=== PATIENT | female | born 1935 | race Caucasian/White ===

== ENCOUNTER 2017-09-29 09:18 | Day surgery (SDC) | payer MEDICARE, MEDICAID ==
[2017-09-29 10:18] VITALS: RESP 18; O2SAT 100
[2017-09-29] MEDS: Bupivacaine 0.25% Inj(30mL) IJ ONE ×2 (10:20→10:42)
[2017-09-29] MEDS: Lidocaine/Epinephrine 1% 1:100000 10 ML IJ ONE ×2 (10:20→10:42)
[2017-09-29] MEDS ORDERED: ceFAZolin IV 1 gm in Dextrose 1 GM/50 ML BAG IVPB ONE (10:40)
--- NOTE | 2017-09-29 11:06 | PCM.SURG1 ---
Surgeon's Initial Post Op Note - Surgeon's Notes Surgeon: Dr velasquez Retort Operator: Dr Mattson PGY3 Type of Anesthesia: Local Pre-Operative Diagnosis: posterior neck lesion Operative Findings: see report Post-Operative Diagnosis: as above Operation Performed: excision of posterior neck lesion Specimen/Specimens Removed: neck lesion Estimated Blood Loss: EBL {In ML}: 1 Blood Products Given: N/A Drains Used: No Drains Post-Op Condition: Good Date of Surgery/Procedure: 09/29/17 Time of Surgery/Procedure: 11:06
[2017-09-29 11:25] VITALS: BP 130/60; PULSE 61; TEMP 98
--- NOTE | 2017-09-30 06:59 | OP ---
PROCEDURE DATE: 09/29/2017 PREOPERATIVE DIAGNOSIS: Left neck skin lesion, 3 x 1 cm size. POSTOPERATIVE DIAGNOSIS: Left neck skin lesion, 3 x 1 cm size. PROCEDURE DONE: Excision of the left neck skin lesion, 3 x 1 cm size. SURGEON: Ken Keita MD. REFRACTORY REPAIRER: Rhett Mattson, PGY-3 resident. TYPE OF ANESTHESIA: General endotracheal tube anesthesia. ESTIMATED BLOOD LOSS: Around 10 mL. DRAINS: None. PATHOLOGY: Skin lesion was sent for the pathology. COMPLICATIONS: None. INTRAOPERATIVE FINDINGS: The patient had approximately 3 x 1 cm skin lesion of the left neck. DESCRIPTION OF PROCEDURE: On intraoperative steps, this is an 82-year-old female who was diagnosed with the skin lesion of the left neck, and the patient was consented for the excision, brought to the OR, placed in right lateral position. The left neck was prepped and draped in the usual sterile fashion. An elliptical 3 x 1 cm incision was made. After incising skin and subcutaneous tissue, the skin lesion was completely excised and sent off the table for pathology. The wound was closed in two layers, subcutaneously with 2-0 Vicryl, skin with a 4-0 Monocryl, and dry sterile dressing was applied. The patient tolerated the procedure well. Count of the instruments and gauze was correct. There was no apparent complication. The patient was sent to the Postanesthesia Care Unit in stable condition. Ken Keita MD ART
== END 2017-09-29 11:45 | disposition home or self-care (01) ==
LOC: C.SDS 09:18
PROVIDERS: ATTEND Surgery Surgical Critical Care
DX: L82.1 Other seborrheic keratosis (principal); E03.9 Hypothyroidism, unspecified; Z95.1 Presence of aortocoronary bypass graft; I25.10 Atherosclerotic heart disease of native coronary artery without angina pectoris; I10 Essential (primary) hypertension; Z79.82 Long term (current) use of aspirin
CPT/HCPCS: 11424; 12042; 88305; J0690

== ENCOUNTER 2017-12-07 12:29 | Inpatient (IN) | payer MEDICARE, MEDICAID ==
[2017-12-07 12:37] VITALS: BMI 29.2
--- NOTE | 2017-12-07 13:12 | RAD ---
Chest x-ray two views History: Shortness of breath. Comparison: None available. Findings: Left basilar consolidation with adjacent left pleural effusion. Mild venous congestion. Small nodular density at the medial right lung base. Blunted right costophrenic angle may represent pleural thickening and or trace effusion. Biapical pleural thickening. Status post median sternotomy. Tortuous aorta. Mild cardiomegaly. Degenerative changes in the spine. Impression: Left basilar consolidation with adjacent left pleural effusion. Mild venous congestion. Small nodular density at the medial right lung base. Blunted right costophrenic angle may represent pleural thickening and or trace effusion. Biapical pleural thickening. Status post median sternotomy. Tortuous aorta. Mild cardiomegaly. Degenerative changes in the spine.
[2017-12-07 13:23] LABS: BASO % 0.3 % (0.0-2.0); EOS % 0.1 % (0.0-4.0); HEMOGLOBIN 13.1 g/dL (11.0-16.0); LYMPH # 0.7 K/uL (1.0-4.3); LYMPH % 5.2 % (20.0-40.0); MEAN CELL VOLUME 90.9 fL (81.0-99.0); MEAN CORPUSCULAR HEMOGLOBIN 30.9 pg (27.0-31.0); MEAN PLATELET VOLUME 7.4 fL (7.2-11.7); MONO # 0.8 K/uL (0.0-0.8); MONO % 5.9 % (0.0-10.0); NEUT % 88.5 % (50.0-75.0); PLATELET COUNT 231 K/uL (130-400); RBC 4.23 Mil/uL (3.80-5.20); RED CELL DISTRIBUTION WIDTH 13.8 % (11.5-14.5); WHITE BLOOD COUNT 13.5 K/uL (4.8-10.8)
--- NOTE | 2017-12-07 13:26 | C.PDOC ---
History Of Present Illness 82 year old female with PMHx of HTN, diabetes, hypothyroidism, and CAD s/p CABG presents to the ED c/o left-sided upper back pain over the past 2-3 days. Associated with generalized weakness and decreased appetite. Pain worsens with deep inspiration and movement. Pt denies SOB, though daughter notes she has been SOB with speech. Otherwise she denies any fever, SOB, cough, dizziness, extremity weakness, numbness, leg pain or swelling. Of note, patient recently returned from traveling to [place] 4 days ago. Time Seen by Provider: 12/07/17 12:48 Chief Complaint (Nursing): Chest Pain History Per: Patient History/Exam Limitations: no limitations Onset/Duration Of Symptoms: Days Current Symptoms Are (Timing): Still Present Exacerbating Factors: Movement, Deep Breathing Recent travel outside of the [place]: Yes ([place]) Additional History Per: Family (daughter at bedside) Past Medical History Vital Signs: Last Vital Signs Temp 99.6 F 12/07/17 12:51 Pulse 72 12/07/17 15:46 Resp 20 12/07/17 15:46 BP 114/54 L 12/07/17 15:46 Pulse Ox 95 12/07/17 17:14 - Medical History PMH: Diabetes, HTN, Hypercholesterolemia, Hypothyroidism, Osteoporosis Denies: Chronic Kidney Disease Surgical History: CABG (CABG 3 VESSEL BYPASS 2002) Family History: States: Unknown Family Hx - Social History Hx Alcohol Use: No Hx Substance Use: No - Immunization History Hx Tetanus Toxoid Vaccination: No Hx Influenza Vaccination: Yes Hx Pneumococcal Vaccination: No Review Of Systems Except As Marked, All Systems Reviewed And Found Negative. Constitutional: Positive for: Weakness (generalized) Cardiovascular: Positive for: Chest Pain Respiratory: Negative for: Cough, Shortness of Breath Gastrointestinal: Negative for: Nausea, Vomiting Musculoskeletal: Positive for: Back Pain. Negative for: Leg Pain (or swelling) Neurological: Negative for: Weakness, Numbness, Dizziness Physical Exam - Physical Exam Appears: Non-toxic, No Acute Distress Skin: Normal Color, Warm, Dry Head: Atraumatic, Normacephalic Eye(s): bilateral: Normal Inspection, EOMI Nose: Normal Oral Mucosa: Moist Neck: Normal ROM, Supple Chest: Symmetrical, No Tenderness, Other (Mediastinal scar noted) Cardiovascular: Rhythm Regular Respiratory: Rales (left base), No Rhonchi, No Wheezing Gastrointestinal/Abdominal: Soft, No Tenderness, No Distention Back: No Vertebral Tenderness, Paraspinal Tenderness (to left parathoracic region) Extremity: Normal ROM Extremity: Bilateral: Atraumatic, Normal Color And Temperature, Normal ROM Neurological/Psych: Oriented x3, Normal Speech, Other (No focal deficits) ED Course And Treatment - Laboratory Results Result Diagrams: 12/07/17 13:16 12/07/17 13:16 O2 Sat by Pulse Oximetry: 95 (RA) Pulse Ox Interpretation: Normal - Other Rad CXR X-Ray: Read By Radiologist Interpretation: Accession No. : [id number]. Patient Name / ID : TONEY ALEJANDRO / [id number]. Exam Date : 12/07/2017 12:52:50 ( Approved ). Study Comment : Sex / Age : F / 82Y. Creator : Willy Hanna MD. Dictator : Willy Hanna MD. Valve Tester : Liaison Officer : Willy Hanna MD. Approver2 : Report Date : 12/07/2017 13:10:53. My Comment : . Chest x-ray two views. History: Shortness of breath. Comparison: None available. Findings: Left basilar consolidation with adjacent left pleural effusion. Mild venous congestion. Small nodular density at the medial right lung base. Blunted right costophrenic angle may represent pleural thickening and or trace effusion. Biapical pleural thickening. Status post median sternotomy. Tortuous aorta. Mild cardiomegaly. Degenerative changes in the spine. Impression: Left basilar consolidation with adjacent left pleural effusion. Mild venous congestion. Small nodular density at the medial right lung base. Blunted right costophrenic angle may represent pleural thickening and or trace effusion. Biapical pleural thickening. Status post median sternotomy. Tortuous aorta. Mild cardiomegaly. Degenerative changes in the spine. - CT Scan/US CTA Chest Other Rad Studies (CT/US): Read By Radiologist, Radiology Report Reviewed CT/US Interpretation: Accession No. : [id number]. Patient Name / ID : TONEY ALEJANDRO / [id number]. Exam Date : 12/07/2017 14:22:47 ( Approved ). Study Comment : Sex / Age : F / 82Y. Creator : Willy Hanna MD. Dictator : Willy Hanna MD. Valve Tester : Liaison Officer : Willy Hanna MD. Approver2 : Report Date : 12/07/2017 15:03:59. My Comment : . PROCEDURE: CT Chest with contrast (Pulmonary Angiogram). HISTORY: Chest pain. COMPARISON: None available. TECHNIQUE: Axial computed tomography images were obtained of the chest in the pulmonary arterial phase of enhancement. Coronal and sagittal reformatted images were created and reviewed. Radiation dose: Total exam DLP = 176 mGy-cm. This CT exam was performed using one or more of the following dose reduction techniques: Automated exposure control, adjustment of the mA and/or kV according to patient size, and/ or use of iterative reconstruction technique. FINDINGS: PULMONARY ARTERIES: No evidence of gross central pulmonary embolism. More limited evaluation of the segmental and subsegmental branches given patient motion artifact. AORTA: Calcification and plaque within visualized aorta. LUNGS: Dense masslike consolidation measuring 5.1 x 5.1 centimeters seen within the lateral aspect of the left lower lobe which may represent prominent infiltrate. Post treatment interval followup would be helpful to ensure resolution and exclude underlying lesion. Punctate 1 millimeter granuloma/nodule left lung apex. Patchy atelectasis scattered throughout the right lung. PLEURAL SPACES: Trace bilateral pleural effusions. HEART: Cardiomegaly. LYMPH NODES: 1.4 centimeter prevascular lymph node. No significant hilar adenopathy. BONES, CHEST WALL: Degenerative changes in the spine. OTHER FINDINGS: Prominent liver. Nodular thickening of the adrenals. Small hiatal hernia. Status post median sternotomy. IMPRESSION: Dense masslike consolidation in the left lower lobe of the lung concerning for prominent infiltrate and or atelectasis. Post treatment interval followup would be helpful to ensure resolution. No evidence of gross central pulmonary embolism. More limited evaluation of the segmental and subsegmental branches given patient motion artifact. Additional findings as above. Progress Note: Initiated work up including EKG, CXR, and labs. Labs reviewed, D -dimer 546. Trop negative. BNP is wnl. CXR shows left base consolidation. Ordered CTA Chest. Patient started on IV Zithro and Rocephin. Case discussed with Dr. De La Torre, who evaluated pt at bedside and agrees with treatment and admission. Disposition - Disposition Disposition: HOSPITALIZED Disposition Time: 14:43 Condition: STABLE - POA Core Measure Indicators: Chest Pain - Clinical Impression Clinical Impression: CAP (community acquired pneumonia) - PA / JUNK DEALER / Resident Statement MD/DO has reviewed & agrees with the documentation as recorded. - Scribe Statement The provider has reviewed the documentation as recorded by the Scribe (Margaret Benjamin) All medical record entries made by the Scribe were at my direction and personally dictated by me. I have reviewed the chart and agree that the record accurately reflects my personal performance of the history, physical exam, medical decision making, and the department course for this patient. I have also personally directed, reviewed, and agree with the discharge instructions and disposition.
[2017-12-07] MEDS ORDERED: Azithromycin 500mg/250ML NS 500 MG/250 ML BAG IV SCH (13:30)
[2017-12-07 13:34] LABS: ALB/GLOB RATIO 0.9 (1.0-2.1); ALBUMIN 3.8 g/dL (3.5-5.0); ALT/SGPT 19 U/L (9-52); AST/SGOT 26 U/L (14-36); BLOOD UREA NITROGEN 16 mg/dL (7-17); CALCIUM 9.5 mg/dl (8.6-10.4); GFR AFRICAN-AMERICAN > 60; GFR NON-AFRICAN AMERICAN 60; LIPASE 162 U/L (23-300)
[2017-12-07 13:40] LABS: SQUAMOUS EPITHIAL < 1 /hpf (0-5); URINE BILIRUBIN NEGATIVE (NEGATIVE); URINE BLOOD NEGATIVE (NEGATIVE); URINE CLARITY Clear (Clear); URINE COLOR Yellow (YELLOW); URINE GLUCOSE (UA) 1+ mg/dL (Normal); URINE LEUKOCYTE ESTERASE NEG Leu/uL (Negative); URINE PROTEIN 2+ mg/dL (NEGATIVE); URINE UROBILINOGEN NORMAL mg/dL (0.2-1.0)
[2017-12-07 13:42] LABS: INR 1.2; PROTHROMBIN TIME 12.8 SECONDS (9.7-12.2)
[2017-12-07 13:46] LABS: B-TYPE NATRIURETIC PEPTIDE 455 pg/mL (0-900)
[2017-12-07 13:48] LABS: CK-MB < 0.22 ng/mL (0.0-3.38)
[2017-12-07] MEDS ORDERED: Iodixanol 320 MG/ML 100 ML BOTTLE IV ONE (13:57)
[2017-12-07] MEDS ORDERED: Azithromycin 500mg/250ML NS 500 MG/250 ML BAG IV STA (14:02)
[2017-12-07 14:04] LABS: LYMPHOCYTE 1 % (20-40); MONOCYTE 3 % (0-10); NEUTROPHIL 96 % (50-75); PLATELET ESTIMATE NORMAL (NORMAL); TOTAL CELLS COUNTED 100
[2017-12-07] MEDS ORDERED: cefTRIAXone IV 1 gm in Dextros 50 ML IV ONE (14:42)
--- NOTE | 2017-12-07 15:05 | CT ---
PROCEDURE: CT Chest with contrast (Pulmonary Angiogram) HISTORY: Chest pain COMPARISON: None available. TECHNIQUE: Axial computed tomography images were obtained of the chest in the pulmonary arterial phase of enhancement. Coronal and sagittal reformatted images were created and reviewed. Radiation dose: Total exam DLP = 176 mGy-cm. This CT exam was performed using one or more of the following dose reduction techniques: Automated exposure control, adjustment of the mA and/or kV according to patient size, and/or use of iterative reconstruction technique. FINDINGS: PULMONARY ARTERIES: No evidence of gross central pulmonary embolism. More limited evaluation of the segmental and subsegmental branches given patient motion artifact. AORTA: Calcification and plaque within visualized aorta. LUNGS: Dense masslike consolidation measuring 5.1 x 5.1 centimeters seen within the lateral aspect of the left lower lobe which may represent prominent infiltrate. Post treatment interval followup would be helpful to ensure resolution and exclude underlying lesion. Punctate 1 millimeter granuloma/nodule left lung apex. Patchy atelectasis scattered throughout the right lung. PLEURAL SPACES: Trace bilateral pleural effusions. HEART: Cardiomegaly. LYMPH NODES: 1.4 centimeter prevascular lymph node. No significant hilar adenopathy. BONES, CHEST WALL: Degenerative changes in the spine. OTHER FINDINGS: Prominent liver. Nodular thickening of the adrenals. Small hiatal hernia. Status post median sternotomy. IMPRESSION: Dense masslike consolidation in the left lower lobe of the lung concerning for prominent infiltrate and or atelectasis. Post treatment interval followup would be helpful to ensure resolution. No evidence of gross central pulmonary embolism. More limited evaluation of the segmental and subsegmental branches given patient motion artifact. Additional findings as above.
[2017-12-07] MEDS: Sodium Chloride 0.9% 1,000 ML IV SCH (15:15)
--- NOTE | 2017-12-07 16:41 | CP.PCM.HP ---
History of Present Illness - History of Present Illness History of Present Illness: Chief complaints: Weakness, left-sided pleuritic chest pain HPI: 82-year-old female with history of hypertension, CAD, status post a CABG, hypothyroidism came to the emergency room with the pleuritic chest pain on the left side. Patient recently went to [facility], returned from [facility] 4 days ago. While she was there she did not have any illness. But 2 days later she started noticing increasing weakness, not able to eat well , progressively worsening left-sided pain in the chest. The pain was sometimes severe, unable to take a deep breath, sharp pain noted, associated with a minimal cough. Not able to produce any mucus production. Splinting pain noted in the left lower chest area. Patient did not have any fever, no chills. But increasingly weakness, poor intake, loss of appetite noted. No recent sick exposure. Past medical history: Hypothyroidism, hypertension, CAD, status post CABG Surgical history: Surgical post-CABG in 2002 Allergy no known drug allergy Personal history nonsmoker nonalcoholic Family history significant for CAD Review of system: Complaining of minimal headache, also complaining of dryness of the mouth, cough noted minimally, left-sided pleuritic chest pain, poor intake, loss of appetite noted. Urine output is and bowel movements are okay On examination: Chest bilateral good air entry, but left-sided lower lung rales noted. Regular heart sound Abdomen soft Nontender. No pedal edema GM MOBILE alert awake oriented. Patient is feeling sick at this time. Labs reviewed Elevated WBC noted, neutrophil positive. X-ray of the chest showing evidence of left lower lung infiltrate. CT of the chest with contrast done to rule out PE, there is no evidence of PE noted. Patient has left lower lung consolidation and pleural effusion Small amount of pleural effusion noted Assessment and recommendation: 82-year-old female with a history of hypertension, hypercholesterolemia, CAD, status post a CABG, hypothyroidism now admitted with a possible acute community- acquired pneumonia. Associated with a minimal pleural effusion, parapneumonic effusion. Patient also has a possible dehydration. Weakness. Will start the patient on IV antibiotic including Rocephin and Zithromax. The also start a dose of vancomycin. Pain management. IV fluid. DVT and GI prophylaxis. Discussed with the family. Will closely monitor and will follow the patient. Present on Admission - Present on Admission Any Indicators Present on Admission: No History of DVT/PE: No History of Uncontrolled Diabetes: No Urinary Catheter: No Decubitus Ulcer Present: No Past Patient History - Past Medical History & Family History Past Medical History?: Yes - Past Social History Smoking Status: Never Smoked - CARDIAC Hx Hypercholesterolemia: Yes Hx Hypertension: Yes - PULMONARY Hx Respiratory Disorders: No - NEUROLOGICAL Hx Neurological Disorder: No - HEENT Hx HEENT Problems: No - RENAL Hx Chronic Kidney Disease: No - ENDOCRINE/METABOLIC Hx Hypothyroidism: Yes - HEMATOLOGICAL/ONCOLOGICAL Hx Blood Disorders: No - INTEGUMENTARY Hx Dermatological Problems: Yes Other/Comment: HX: SKIN LESION BACK OF NECK - MUSCULOSKELETAL/RHEUMATOLOGICAL Hx Osteoporosis: Yes - GASTROINTESTINAL Hx Gastrointestinal Disorders: No - GENITOURINARY/GYNECOLOGICAL Hx Genitourinary Disorders: No - PSYCHIATRIC Hx Substance Use: No - SURGICAL HISTORY Hx Coronary Artery Bypass Graft: Yes (CABG 3 VESSEL BYPASS 2002) - ANESTHESIA Hx Anesthesia: Yes Hx Anesthesia Reactions: No Meds Allergies/Adverse Reactions: Allergies Allergy/AdvReac Type Severity Reaction Status Date / Time No Known Allergies Allergy Verified 09/24/17 11:25 Results - Vital Signs Recent Vital Signs: Last Vital Signs Temp 99.6 F 12/07/17 12:51 Pulse 72 12/07/17 15:46 Resp 20 12/07/17 15:46 BP 114/54 L 12/07/17 15:46 Pulse Ox 96 12/07/17 15:46 - Labs Result Diagrams: 12/07/17 13:16 12/07/17 13:16 Labs: Laboratory Results - last 24 hr 12/07/17 12/07/17 12/07/17 13:16 13:16 13:16 WBC 13.5 H RBC 4.23 Hgb 13.1 Hct 38.5 MCV 90.9 MCH 30.9 MCHC 34.0 RDW 13.8 Plt Count 231 MPV 7.4 Neut % (Auto) 88.5 H Lymph % (Auto) 5.2 L Rock % (Auto) 5.9 Eos % (Auto) 0.1 Baso % (Auto) 0.3 Neut # (Auto) 12.0 H Lymph # (Auto) 0.7 L Rock # (Auto) 0.8 Eos # (Auto) 0.0 Baso # (Auto) 0.0 Neutrophils % (Manual) 96 H Lymphocytes % (Manual) 1 L Monocytes % (Manual) 3 Platelet Estimate Normal RBC Morphology Normal PT 12.8 H INR 1.2 APTT 34 D-Dimer, Quantitative 548 H Sodium 136 Potassium 3.7 Chloride 97 L Carbon Dioxide 27 Anion Gap 15 BUN 16 Creatinine 0.9 Est GFR ( Amer) > 60 Est GFR (Non-Af Amer) 60 Random Glucose 181 H Calcium 9.5 Total Bilirubin 1.5 H AST 26 ALT 19 Alkaline Phosphatase 95 Total Creatine Kinase 31 CK-MB (Mass) < 0.22 Troponin I < 0.0120 NT-Pro-B Natriuret Pep 455 Total Protein 7.9 Albumin 3.8 Globulin 4.1 H Albumin/Globulin Ratio 0.9 L Lipase 162 Urine Color Urine Clarity Urine pH Ur Specific [place] Urine Protein Urine Glucose (UA) Urine Ketones Urine Blood Urine Nitrate Urine Bilirubin Urine Urobilinogen Ur Leukocyte Esterase Urine WBC (Auto) Urine RBC (Auto) Ur Squamous Epith Cells 12/07/17 13:23 WBC RBC Hgb Hct MCV MCH MCHC RDW Plt Count MPV Neut % (Auto) Lymph % (Auto) Rock % (Auto) Eos % (Auto) Baso % (Auto) Neut # (Auto) Lymph # (Auto) Rock # (Auto) Eos # (Auto) Baso # (Auto) Neutrophils % (Manual) Lymphocytes % (Manual) Monocytes % (Manual) Platelet Estimate RBC Morphology PT INR APTT D-Dimer, Quantitative Sodium Potassium Chloride Carbon Dioxide Anion Gap BUN Creatinine Est GFR ( Amer) Est GFR (Non-Af Amer) Random Glucose Calcium Total Bilirubin AST ALT Alkaline Phosphatase Total Creatine Kinase CK-MB (Mass) Troponin I NT-Pro-B Natriuret Pep Total Protein Albumin Globulin Albumin/Globulin Ratio Lipase Urine Color Yellow Urine Clarity Clear Urine pH 5.0 Ur Specific [place] 1.018 Urine Protein 2+ H Urine Glucose (UA) 1+ Urine Ketones Negative Urine Blood Negative Urine Nitrate Negative Urine Bilirubin Negative Urine Urobilinogen Normal Ur Leukocyte Esterase Neg Urine WBC (Auto) 1 Urine RBC (Auto) 1 Ur Squamous Epith Cells < 1
[2017-12-07] MEDS: Oxycodone/Acetaminophen 5/325 mg Tab PO PRN ×2 (17:37→21:57)
[2017-12-07] MEDS ORDERED: Tramadol 25 mg PO SCH (18:00)
[2017-12-08] MEDS: Albuterol-Ipratrop 3 mg / 0.5 (3 ml) UD INH SCH ×4 (01:06→19:34)
[2017-12-08] MEDS: Levothyroxine 125 MCG TAB PO SCH (06:03)
[2017-12-08 07:54] LABS: SQUAMOUS EPITHIAL 3 /hpf (0-5); URINE AMORPHOUS SEDIMENT RARE /ul (<OCC); URINE BILIRUBIN NEGATIVE (NEGATIVE); URINE BLOOD NEGATIVE (NEGATIVE); URINE CLARITY Hazy (Clear); URINE GLUCOSE (UA) NORMAL (Normal); URINE LEUKOCYTE ESTERASE 1+ Leu/uL (Negative); URINE PROTEIN 1+ mg/dL (NEGATIVE); URINE UROBILINOGEN NORMAL mg/dL (0.2-1.0)
[2017-12-08 08:08] LABS: ALB/GLOB RATIO 0.9 (1.0-2.1); ALT/SGPT 11 U/L (9-52); AST/SGOT 19 U/L (14-36); BLOOD UREA NITROGEN 19 mg/dL (7-17); GFR AFRICAN-AMERICAN > 60; GFR NON-AFRICAN AMERICAN 53
[2017-12-08 08:09] LABS: URINE COLOR YELLOW (YELLOW)
[2017-12-08 08:14] LABS: BASO % 0.1 % (0.0-2.0); EOS # 0.1 K/uL (0.0-0.7); LYMPH # 1.2 K/uL (1.0-4.3); LYMPH % 9.3 % (20.0-40.0); MEAN CELL VOLUME 90.3 fL (81.0-99.0); MEAN CORPUSCULAR HEMOGLOBIN 30.6 pg (27.0-31.0); MEAN CORPUSCULAR HGB CONC 33.9 g/dL (33.0-37.0); MEAN PLATELET VOLUME 7.7 fL (7.2-11.7); MONO # 0.7 K/uL (0.0-0.8); MONO % 5.2 % (0.0-10.0); NEUT # 11.1 K/uL (1.8-7.0); NEUT % 84.4 % (50.0-75.0); PLATELET COUNT 208 K/uL (130-400); RED CELL DISTRIBUTION WIDTH 13.7 % (11.5-14.5); WHITE BLOOD COUNT 13.1 K/uL (4.8-10.8)
[2017-12-08 08:17] LABS: HEMOGLOBIN 10.4 g/dL (11.0-16.0)
[2017-12-08 08:46] LABS: BANDS 7 % (0-2); LYMPHOCYTE 11 % (20-40); MONOCYTE 6 % (0-10); NEUTROPHIL 76 % (50-75); PLATELET ESTIMATE NORMAL (NORMAL); TOTAL CELLS COUNTED 100
[2017-12-08 08:47] LABS: ANISOCYTOSIS SLIGHT; HYPOCHROMIC SLIGHT; POIKILOCYTOSIS SLIGHT; TARGET CELLS SLIGHT
[2017-12-08] MEDS ORDERED: cefTRIAXone IV 1 gm in Dextros 50 ML IVPB SCH (10:00)
--- NOTE | 2017-12-08 11:52 | RAD ---
HISTORY: Pneumonia COMPARISON: Comparison made with chest radiograph and CTA of the chest both dated 12/07/2017 FINDINGS: LUNGS: Left lower lobe opacity may represent some combination of atelectasis and or infiltrate. Small left-sided effusion present. . Tiny right-sided effusion not appreciated on this study as compared to high-resolution CTA chest PLEURA: As above. No pneumothorax apparent. CARDIOVASCULAR: Cardiomegaly. Sternotomy wires again noted OSSEOUS STRUCTURES: No significant abnormalities. VISUALIZED UPPER ABDOMEN: Normal. OTHER FINDINGS: None. IMPRESSION: Left lower lobe opacity may represent some combination of atelectasis and or infiltrate. Small left-sided effusion present. . Tiny right-sided effusion not appreciated on this study as compared to high-resolution CTA chest
[2017-12-08] MEDS: Azithromycin 500 MG in Sodium Chloride 0.9% 250 ML IVPB SCH (14:24)
[2017-12-08] MEDS: Sodium Chloride 0.9% 1,000 ML IV SCH (14:26)
[2017-12-08] MEDS ORDERED: Pneumococcal 23-Valent Vaccine IM ONE (16:46)
[2017-12-08] MEDS ORDERED: Tramadol 25 mg PO PRN (16:46)
[2017-12-08] MEDS: (Novolin R) Insulin Human Regular 100 units/ml vial SC SCH ×2 (18:13→22:00)
[2017-12-08] MEDS: Piperacillin/Tazobact 3.375 GM in Sodium Chloride 100 ML IVPB SCH (19:00)
[2017-12-08] MEDS: Nystatin 100,000 Units/ml Oral Susp 5 ml UD PO SCH (21:13)
--- NOTE | 2017-12-08 23:07 | CARD ---
APPROVED REPORT EKG Measurement Heart [id number] <Conclusion> Normal sinus rhythm ST & T wave abnormality, consider anterior ischemia, artifact. Abnormal ECG
[2017-12-09] MEDS: Albuterol-Ipratrop 3 mg / 0.5 (3 ml) UD INH SCH ×4 (02:02→19:34)
[2017-12-09] MEDS: Piperacillin/Tazobact 3.375 GM in Sodium Chloride 100 ML IVPB SCH ×3 (03:05→19:00)
[2017-12-09] MEDS: Levothyroxine 125 MCG TAB PO SCH (06:22)
[2017-12-09 07:38] LABS: BASO % 0.3 % (0.0-2.0); EOS # 0.2 K/uL (0.0-0.7); EOS % 1.8 % (0.0-4.0); HEMOGLOBIN 10.1 g/dL (11.0-16.0); LYMPH # 1.3 K/uL (1.0-4.3); LYMPH % 11.2 % (20.0-40.0); MEAN CELL VOLUME 90.8 fL (81.0-99.0); MEAN CORPUSCULAR HEMOGLOBIN 31.2 pg (27.0-31.0); MEAN CORPUSCULAR HGB CONC 34.4 g/dL (33.0-37.0); MEAN PLATELET VOLUME 7.4 fL (7.2-11.7); MONO # 0.8 K/uL (0.0-0.8); MONO % 6.4 % (0.0-10.0); NEUT # 9.6 K/uL (1.8-7.0); NEUT % 80.3 % (50.0-75.0); RBC 3.24 Mil/uL (3.80-5.20); RED CELL DISTRIBUTION WIDTH 13.5 % (11.5-14.5); WHITE BLOOD COUNT 11.9 K/uL (4.8-10.8)
[2017-12-09] MEDS: (Novolin R) Insulin Human Regular 100 units/ml vial SC SCH ×4 (07:56→21:22)
[2017-12-09 07:57] LABS: ALB/GLOB RATIO 0.9 (1.0-2.1); ALBUMIN 2.8 g/dL (3.5-5.0); ALT/SGPT 17 U/L (9-52); AST/SGOT 21 U/L (14-36); BLOOD UREA NITROGEN 12 mg/dL (7-17); GFR AFRICAN-AMERICAN > 60; GFR NON-AFRICAN AMERICAN 60
[2017-12-09] MEDS: Azithromycin 500 MG in Sodium Chloride 0.9% 250 ML IVPB SCH (11:51)
[2017-12-09] MEDS: Nystatin 100,000 Units/ml Oral Susp 5 ml UD PO SCH ×4 (11:51→21:14)
--- NOTE | 2017-12-09 12:25 | CT ---
PROCEDURE: CT Chest without contrast HISTORY: pleural effusion COMPARISON: None. TECHNIQUE: Contiguous axial images were obtained through the chest without intravenous contrast enhancement. Sagittal and coronal reconstructions were performed. Radiation dose (DLP): mGy-cm. This CT exam was performed using one or more of the following dose reduction techniques: Automated exposure control, adjustment of the mA and/or kV according to patient size, and/or use of iterative reconstruction technique. FINDINGS: LUNGS: Left pleural effusion remains mild but is increased in the interval with trace right pleural effusion also slightly increased. Compression atelectasis affects the left lower lobe moderately. Underlying infiltrate at the left lower lobe is not excluded. Trace compression atelectasis affects the right lower lobe. Central airways are clear. Respiratory motion degrades the examination. No pneumothorax bilaterally. Today granuloma reiterated left apex posteriorly. MEDIASTINUM: Mild cardiomegaly reiterated. Coronary calcifications are again seen with normal caliber thoracic aorta and main pulmonary artery. Median sternotomy wires reiterated. No prominent lymphadenopathy although 1.4 cm prevascular node is again evident. BONES: Multilevel thoracic spondylosis reiterated. UPPER ABDOMEN: Grossly unremarkable. OTHER FINDINGS: None. IMPRESSION: 1. Mild but increased left pleural effusion noted exerting compression atelectasis the left lower lobe with underlying atelectasis or infiltrate at the left lower lobe. 2. Trace right pleural effusion increased as well. 3. Stable cardiomegaly.
--- NOTE | 2017-12-09 22:32 | CP.PCM.PN ---
Subjective - Date & Time of Evaluation Date of Evaluation: 12/08/17 Time of Evaluation: 22:31 - Subjective Subjective: Patient repeat chest x-ray showing slight worsening pleural effusion on the left lung. Still having severe pain. Cough with there is scanty mucus noted On examination: Decreased air entry in the left lung. Regular heart sounds. Abdominal nontender. Labs reviewed Elevated WBC still noted. Chest x-ray is slight worsening left lower lung infiltrate Assessment and recommendation: 82-year-old female admitted with history of diabetes and hypertension CAD. CABG. Left lower lung pneumonia, with parapneumonic effusion small. We will repeat the CAT scan tomorrow. Objective - Vital Signs/Intake and Output Vital Signs (last 24 hours): Temp Pulse Resp BP Pulse Ox 99.7 F H 97 H 20 135/72 98 12/09/17 16:08 12/09/17 16:08 12/09/17 16:08 12/09/17 16:08 12/09/17 16:08 Intake and Output: 12/09/17 12/10/17 18:59 06:59 Intake Total 340 Balance 340 - Medications Medications: Current Medications Acetaminophen (Tylenol 325mg Tab) 650 mg PO Q6 PRN PRN Reason: Pain, moderate (4-7) Last Admin: 12/07/17 20:12 Dose: 650 mg Albuterol/Ipratropium (Duoneb 3 Mg/0.5 Mg (3 Ml) Ud) 3 ml INH RQ6 [facility] Last Admin: 12/09/17 19:34 Dose: 3 ml Aspirin (Ecotrin) 81 mg PO DAILY [facility] Last Admin: 12/09/17 11:50 Dose: 81 mg Docusate Sodium (Colace) 100 mg PO BID [facility] Last Admin: 12/09/17 17:21 Dose: 100 mg Guaifenesin (Robitussin) 100 mg PO Q4H PRN PRN Reason: Cough Heparin Sodium (Porcine) (Heparin) 5,000 units SC Q8 [facility] Last Admin: 12/09/17 21:14 Dose: 5,000 units Azithromycin 500 mg/ Sodium (Chloride) 250 mls @ 250 mls/hr IVPB DAILY [facility] PRN Reason: Protocol Last Admin: 12/09/17 11:51 Dose: 250 mls/hr Piperacillin Sod/Tazobactam (Sod 3.375 gm/ Sodium Chloride) 100 mls @ 200 mls/ hr IVPB Q8H [facility] PRN Reason: Protocol Last Admin: 12/09/17 19:00 Dose: 200 mls/hr Insulin Human Regular (Novolin R) 0 unit SC ACHS [facility] PRN Reason: Protocol Last Admin: 12/09/17 21:22 Dose: Not Given Levothyroxine Sodium (Synthroid) 125 mcg PO Q24H [facility] Last Admin: 12/09/17 06:22 Dose: 125 mcg Metoprolol Tartrate (Lopressor) 25 mg PO BID [facility] Nystatin (Nystatin Oral Susp) 5 ml PO QID [facility] Last Admin: 12/09/17 21:14 Dose: 5 ml Rosuvastatin Calcium (Crestor) 5 mg PO HS [facility] Saccharomyces Boulardii (Florastor) 250 mg PO TID [facility] Zolpidem Tartrate (Ambien) 5 mg PO HS PRN PRN Reason: Insomnia Last Admin: 12/09/17 21:28 Dose: 5 mg - Labs Labs: 12/09/17 07:20 12/09/17 07:20 PT 12.8 SECONDS (9.7-12.2) H 12/07/17 13:16 INR 1.2 12/07/17 13:16 APTT 34 SECONDS (21-34) 12/07/17 13:16
--- NOTE | 2017-12-09 22:32 | CP.PCM.PN ---
Subjective - Date & Time of Evaluation Date of Evaluation: 12/09/17 Time of Evaluation: 22:32 - Subjective Subjective: Today CAT scan of the chest showing evidence of increased left pleural effusion , and also associated left lower lung pneumonia. Also trace right pleural effusion noted. Stable cardiomegaly noted. Patient is now able to sit up. She is still not eating well. No sweating, no fever noted on On examination: Chest bilateral good entry, but left lower lung crepitations noted Regular heart sounds Abdominal nontender Labs reviewed Some improvement in the WBC noted CT scan of the chest reported Assessment and recommendation: Patient is with will discuss with interventional radiology and got the acute pneumonia, parapneumonic effusion. We will get an echocardiogram tomorrow. We will check with interventional radiology for possible thoracentesis. We will follow the patient Objective - Vital Signs/Intake and Output Vital Signs (last 24 hours): Temp Pulse Resp BP Pulse Ox 99.7 F H 97 H 20 135/72 98 12/09/17 16:08 12/09/17 16:08 12/09/17 16:08 12/09/17 16:08 12/09/17 16:08 Intake and Output: 12/09/17 12/10/17 18:59 06:59 Intake Total 340 Balance 340 - Medications Medications: Current Medications Acetaminophen (Tylenol 325mg Tab) 650 mg PO Q6 PRN PRN Reason: Pain, moderate (4-7) Last Admin: 12/07/17 20:12 Dose: 650 mg Albuterol/Ipratropium (Duoneb 3 Mg/0.5 Mg (3 Ml) Ud) 3 ml INH RQ6 [facility] Last Admin: 12/09/17 19:34 Dose: 3 ml Aspirin (Ecotrin) 81 mg PO DAILY [facility] Last Admin: 12/09/17 11:50 Dose: 81 mg Docusate Sodium (Colace) 100 mg PO BID [facility] Last Admin: 12/09/17 17:21 Dose: 100 mg Guaifenesin (Robitussin) 100 mg PO Q4H PRN PRN Reason: Cough Heparin Sodium (Porcine) (Heparin) 5,000 units SC Q8 [facility] Last Admin: 12/09/17 21:14 Dose: 5,000 units Azithromycin 500 mg/ Sodium (Chloride) 250 mls @ 250 mls/hr IVPB DAILY [facility] PRN Reason: Protocol Last Admin: 12/09/17 11:51 Dose: 250 mls/hr Piperacillin Sod/Tazobactam (Sod 3.375 gm/ Sodium Chloride) 100 mls @ 200 mls/ hr IVPB Q8H [facility] PRN Reason: Protocol Last Admin: 12/09/17 19:00 Dose: 200 mls/hr Insulin Human Regular (Novolin R) 0 unit SC ACHS [facility] PRN Reason: Protocol Last Admin: 12/09/17 21:22 Dose: Not Given Levothyroxine Sodium (Synthroid) 125 mcg PO Q24H [facility] Last Admin: 12/09/17 06:22 Dose: 125 mcg Metoprolol Tartrate (Lopressor) 25 mg PO BID [facility] Nystatin (Nystatin Oral Susp) 5 ml PO QID [facility] Last Admin: 12/09/17 21:14 Dose: 5 ml Rosuvastatin Calcium (Crestor) 5 mg PO HS [facility] Saccharomyces Boulardii (Florastor) 250 mg PO TID [facility] Zolpidem Tartrate (Ambien) 5 mg PO HS PRN PRN Reason: Insomnia Last Admin: 12/09/17 21:28 Dose: 5 mg - Labs Labs: 12/09/17 07:20 12/09/17 07:20 PT 12.8 SECONDS (9.7-12.2) H 12/07/17 13:16 INR 1.2 12/07/17 13:16 APTT 34 SECONDS (21-34) 12/07/17 13:16
[2017-12-10] MEDS: guaiFENesin 100 mg/5 ml Syrup UD PO PRN ×4 (00:58→17:32)
[2017-12-10] MEDS: Albuterol-Ipratrop 3 mg / 0.5 (3 ml) UD INH SCH ×4 (01:39→19:27)
[2017-12-10] MEDS: Piperacillin/Tazobact 3.375 GM in Sodium Chloride 100 ML IVPB SCH ×3 (03:15→19:55)
[2017-12-10] MEDS: Levothyroxine 125 MCG TAB PO SCH (05:38)
[2017-12-10] MEDS: (Novolin R) Insulin Human Regular 100 units/ml vial SC SCH ×4 (07:40→21:25)
[2017-12-10 07:45] LABS: BASO % 0.2 % (0.0-2.0); EOS # 0.2 K/uL (0.0-0.7); EOS % 1.9 % (0.0-4.0); HEMOGLOBIN 9.8 g/dL (11.0-16.0); LYMPH # 1.4 K/uL (1.0-4.3); LYMPH % 11.6 % (20.0-40.0); MEAN CELL VOLUME 89.7 fL (81.0-99.0); MEAN CORPUSCULAR HEMOGLOBIN 30.8 pg (27.0-31.0); MEAN CORPUSCULAR HGB CONC 34.4 g/dL (33.0-37.0); MEAN PLATELET VOLUME 7.4 fL (7.2-11.7); MONO # 0.8 K/uL (0.0-0.8); MONO % 6.8 % (0.0-10.0); NEUT # 9.5 K/uL (1.8-7.0); NEUT % 79.5 % (50.0-75.0); RBC 3.17 Mil/uL (3.80-5.20); RED CELL DISTRIBUTION WIDTH 13.6 % (11.5-14.5); WHITE BLOOD COUNT 11.9 K/uL (4.8-10.8)
[2017-12-10 08:12] LABS: ALB/GLOB RATIO 0.8 (1.0-2.1); ALBUMIN 2.9 g/dL (3.5-5.0); ALT/SGPT 8 U/L (9-52); AST/SGOT 23 U/L (14-36); BLOOD UREA NITROGEN 9 mg/dL (7-17); CALCIUM 8.8 mg/dl (8.6-10.4); GFR AFRICAN-AMERICAN > 60; GFR NON-AFRICAN AMERICAN > 60
[2017-12-10] MEDS: Azithromycin 500 MG in Sodium Chloride 0.9% 250 ML IVPB SCH (10:13)
[2017-12-10] MEDS: Nystatin 100,000 Units/ml Oral Susp 5 ml UD PO SCH ×4 (10:15→21:26)
[2017-12-10] MEDS: Saccharomyces Boulardi 250 mg Cap PO SCH ×3 (10:20→17:30)
--- NOTE | 2017-12-10 14:18 | US ---
HISTORY: poor appetite, pancreatitis COMPARISON: None. TECHNIQUE: Sonographic evaluation of the abdomen. FINDINGS: LIVER: Measures 16.3 cm. Normal echogenicity of the liver parenchyma. No mass. No intrahepatic bile duct dilatation. GALLBLADDER: Unremarkable. No gallstones. COMMON BILE DUCT: Measures 4 mm. No stones. No dilatation. PANCREAS: Not well-visualized RIGHT KIDNEY: Measures 10.0 x 4.3 x 3.7cm. Normal echogenicity. No calculus, mass, or hydronephrosis. LEFT KIDNEY: Measures 9.8 x 4.6 x 4.3cm. Normal echogenicity. No calculus, mass, or hydronephrosis. SPLEEN: Normal in size and contour. No mass. AORTA: No aneurysmal dilatation. IVC: Unremarkable. OTHER FINDINGS: Trace bilateral pleural effusion. IMPRESSION: Limited evaluation of the pancreas. Otherwise, unremarkable abdominal ultrasound. Trace bilateral pleural effusions.
[2017-12-10 20:24] LABS: BASO % 0.3 % (0.0-2.0); EOS # 0.4 K/uL (0.0-0.7); EOS % 3.3 % (0.0-4.0); HEMOGLOBIN 10.5 g/dL (11.0-16.0); LYMPH % 15.5 % (20.0-40.0); MEAN CELL VOLUME 90.3 fL (81.0-99.0); MEAN CORPUSCULAR HEMOGLOBIN 29.4 pg (27.0-31.0); MEAN CORPUSCULAR HGB CONC 32.6 g/dL (33.0-37.0); MEAN PLATELET VOLUME 7.2 fL (7.2-11.7); MONO # 0.8 K/uL (0.0-0.8); MONO % 5.8 % (0.0-10.0); NEUT # 9.8 K/uL (1.8-7.0); NEUT % 75.1 % (50.0-75.0); NRBC % 0.1 % (0.0-2.0); RBC 3.58 Mil/uL (3.80-5.20); RED CELL DISTRIBUTION WIDTH 13.8 % (11.5-14.5)
[2017-12-10 20:50] LABS: CK-MB 1.34 ng/mL (0.0-3.38); TROPONIN I 0.015 ng/mL (0.00-0.120)
--- NOTE | 2017-12-10 21:50 | CP.PCM.PN ---
Subjective - Date & Time of Evaluation Date of Evaluation: 12/10/17 Time of Evaluation: 21:48 - Subjective Subjective: Patient was doing well this morning. Patient was able to stand up and walk. Cough noted. With a productive mucus sputum. Minimal. But this afternoon after nebs treatment patient started having significant bilateral wheezing. Also rales noted. Again similar event happened around 8 PM. Immediately x-ray was done. Mild congestion noted Elevated proBNP noted I spoke to the pot maker Dr. Nation, who reviewed the echocardiogram, and echo showing evidence of normal ejection fraction, diastolic comfort and possible Also patient has some mild to moderate mitral regurgitation, contributing possibly diastolic dysfunction and diastolic heart failure. On examination: Bilateral diffuse wheezing Vital signs otherwise normal Regular heart sound Abdomen soft Nontender pedal edema Alert awake oriented 3 Assessment and recommendation: 82-year-old female admitted with the pneumonia, parapneumonic effusion, and now having possible decompensated diastolic heart failure. Lasix 20 mg given immediately. Patient improved markedly. Currently comfortable. Vital signs otherwise stable. Cardiology evaluation. We'll continue to monitor. Telemetry admission. Patient's family at bedside. Objective - Vital Signs/Intake and Output Vital Signs (last 24 hours): Temp Pulse Resp BP Pulse Ox 99.9 F H 83 20 148/81 96 12/10/17 15:52 12/10/17 15:52 12/10/17 15:52 12/10/17 20:22 12/10/17 15:52 Intake and Output: 12/10/17 12/11/17 18:59 06:59 Intake Total 850 Balance 850 - Medications Medications: Current Medications Acetaminophen (Tylenol 325mg Tab) 650 mg PO Q6 PRN PRN Reason: Pain, moderate (4-7) Last Admin: 12/07/17 20:12 Dose: 650 mg Aspirin (Ecotrin) 81 mg PO DAILY [facility] Last Admin: 12/10/17 10:15 Dose: 81 mg Docusate Sodium (Colace) 100 mg PO BID [facility] Last Admin: 12/10/17 17:30 Dose: 100 mg Guaifenesin (Robitussin) 100 mg PO Q4H PRN PRN Reason: Cough Last Admin: 12/10/17 17:32 Dose: 100 mg Heparin Sodium (Porcine) (Heparin) 5,000 units SC Q12 [facility] Piperacillin Sod/Tazobactam (Sod 3.375 gm/ Sodium Chloride) 100 mls @ 200 mls/ hr IVPB Q8H [facility] PRN Reason: Protocol Last Admin: 12/10/17 19:55 Dose: 200 mls/hr Insulin Human Regular (Novolin R) 0 unit SC ACHS [facility] PRN Reason: Protocol Last Admin: 12/10/17 21:25 Dose: Not Given Levothyroxine Sodium (Synthroid) 125 mcg PO Q24H [facility] Last Admin: 12/10/17 05:38 Dose: 125 mcg Metoprolol Tartrate (Lopressor) 25 mg PO BID [facility] Last Admin: 12/10/17 17:31 Dose: 25 mg Nystatin (Nystatin Oral Susp) 5 ml PO QID [facility] Last Admin: 12/10/17 21:26 Dose: 5 ml Rosuvastatin Calcium (Crestor) 5 mg PO HS [facility] Last Admin: 12/10/17 21:24 Dose: 5 mg Saccharomyces Boulardii (Florastor) 250 mg PO TID [facility] Last Admin: 12/10/17 17:30 Dose: 250 mg Zolpidem Tartrate (Ambien) 5 mg PO HS PRN PRN Reason: Insomnia Last Admin: 12/10/17 21:24 Dose: 5 mg - Labs Labs: 12/10/17 20:14 12/10/17 07:28 PT 12.8 SECONDS (9.7-12.2) H 12/07/17 13:16 INR 1.2 12/07/17 13:16 APTT 34 SECONDS (21-34) 12/07/17 13:16
[2017-12-10] MEDS ORDERED: Albuterol-Ipratrop 3 mg / 0.5 (3 ml) UD INH SCH (22:00)
[2017-12-11] MEDS ORDERED: Albuterol-Ipratrop 3 mg / 0.5 (3 ml) UD INH STA ×2 (00:43→06:56)
[2017-12-11] MEDS: Piperacillin/Tazobact 3.375 GM in Sodium Chloride 100 ML IVPB SCH ×2 (03:00→10:28)
[2017-12-11] MEDS: Levothyroxine 125 MCG TAB PO SCH (05:54)
[2017-12-11] MEDS ORDERED: MethylPREDNISolone 40 mg Vial IVP ONE (07:30)
[2017-12-11 07:49] LABS: BASO # 0.1 K/uL (0.0-0.2); BASO % 0.5 % (0.0-2.0); EOS # 0.5 K/uL (0.0-0.7); HEMOGLOBIN 9.8 g/dL (11.0-16.0); MEAN CELL VOLUME 89.8 fL (81.0-99.0); MEAN CORPUSCULAR HEMOGLOBIN 30.4 pg (27.0-31.0); MEAN CORPUSCULAR HGB CONC 33.9 g/dL (33.0-37.0); MEAN PLATELET VOLUME 7.6 fL (7.2-11.7); NEUT # 8.4 K/uL (1.8-7.0); NEUT % 70.5 % (50.0-75.0); NRBC % 0.1 % (0.0-2.0); RBC 3.23 Mil/uL (3.80-5.20); RED CELL DISTRIBUTION WIDTH 13.7 % (11.5-14.5); WHITE BLOOD COUNT 11.9 K/uL (4.8-10.8)
[2017-12-11] MEDS: (Novolin R) Insulin Human Regular 100 units/ml vial SC SCH ×4 (07:52→21:03)
[2017-12-11 08:05] LABS: ALB/GLOB RATIO 0.9 (1.0-2.1); ALBUMIN 2.9 g/dL (3.5-5.0); ALT/SGPT 21 U/L (9-52); BLOOD UREA NITROGEN 12 mg/dL (7-17); GFR AFRICAN-AMERICAN > 60; GFR NON-AFRICAN AMERICAN 60
[2017-12-11 08:18] LABS: AST/SGOT 42 U/L (14-36); CALCIUM 8.9 mg/dl (8.6-10.4)
--- NOTE | 2017-12-11 08:42 | RAD ---
Chest x-ray single frontal view History: Congestive heart failure. Comparison: 12/08/2017 Findings: Moderate left pleural effusion with associated left basilar consolidative changes. Surgical clips at the left lung base. Status post median sternotomy. Biapical pleural thickening. Moderate venous congestion. Tortuous ectatic aorta. Mild cardiomegaly. Degenerative changes in the spine with paravertebral osteophytes. Impression: Moderate left pleural effusion with associated left basilar consolidative changes. Surgical clips at the left lung base. Status post median sternotomy. Biapical pleural thickening. Moderate venous congestion. Tortuous ectatic aorta. Mild cardiomegaly. Degenerative changes in the spine with paravertebral osteophytes.
[2017-12-11] MEDS ORDERED: Pneumococcal 23-Valent Vaccine IM ONE (10:00)
[2017-12-11] MEDS: Saccharomyces Boulardi 250 mg Cap PO SCH ×2 (10:28→17:00)
[2017-12-11] MEDS: Nystatin 100,000 Units/ml Oral Susp 5 ml UD PO SCH ×3 (10:28→21:03)
[2017-12-11] MEDS: Imipenem/Cilastatin 500 MG in Sodium Chloride 100 ML IVPB SCH ×2 (14:17→21:03)
--- NOTE | 2017-12-11 17:55 | CP.PCM.PN ---
Subjective - Date & Time of Evaluation Date of Evaluation: 12/11/17 Time of Evaluation: 17:54 - Subjective Subjective: Patient today feeling better. This morning patient had a significant wheezing, and coughing. Still having coughing. 1 dose of Solu-Medrol 20 mg was given. Blood sugar got elevated. But her wheezing is much less now. She denies any chest pain. Eating better. No diarrhea noted On examination: Vital signs stable. Denies any chest pain. Chest bilateral minimal expiratory wheezing noted, but mostly on the left side. Regular heart sound. Abdomen soft. Nontender Patient's labs reviewed Elevated sugar noted. WBC improving Assessment and recommendation: 82-year-old female with history of CAD. CABG admitted with acute pneumonia. Now complicated with mildly decompensated heart failure. Associated with acute bronchitis. Possible hyper airway reactive. Improving with Lasix, and it Solu-Medrol. Cardiology evaluation pending Will closely monitor. Antibiotics changed to imipenem today. We will follow the patient Objective - Vital Signs/Intake and Output Vital Signs (last 24 hours): Temp Pulse Resp BP Pulse Ox 98.0 F 60 20 138/78 96 12/11/17 15:40 12/11/17 15:40 12/11/17 15:40 12/11/17 17:00 12/11/17 15:40 - Medications Medications: Current Medications Acetaminophen (Tylenol 325mg Tab) 650 mg PO Q6 PRN PRN Reason: Pain, moderate (4-7) Last Admin: 12/07/17 20:12 Dose: 650 mg Aspirin (Ecotrin) 81 mg PO DAILY [facility] Last Admin: 12/11/17 10:28 Dose: 81 mg Docusate Sodium (Colace) 100 mg PO BID [facility] Last Admin: 12/11/17 17:00 Dose: 100 mg Glipizide (Glucotrol) 5 mg PO ACB [facility] Guaifenesin (Robitussin) 100 mg PO Q4H PRN PRN Reason: Cough Last Admin: 12/10/17 17:32 Dose: 100 mg Heparin Sodium (Porcine) (Heparin) 5,000 units SC Q12 [facility] Last Admin: 12/11/17 10:27 Dose: 5,000 units Imipenem/Cilastatin Sodium 500 (mg/ Sodium Chloride) 100 mls @ 100 mls/hr IVPB Q8 [facility] PRN Reason: Protocol Last Admin: 12/11/17 14:17 Dose: 100 mls/hr Insulin Human Regular (Novolin R) 0 unit SC ACHS [facility] PRN Reason: Protocol Last Admin: 12/11/17 17:00 Dose: 4 unit Levothyroxine Sodium (Synthroid) 125 mcg PO Q24H [facility] Last Admin: 12/11/17 05:54 Dose: 125 mcg Metoprolol Tartrate (Lopressor) 25 mg PO BID [facility] Last Admin: 12/11/17 17:00 Dose: 25 mg Nystatin (Nystatin Oral Susp) 5 ml PO QID [facility] Last Admin: 12/11/17 17:00 Dose: 5 ml Rosuvastatin Calcium (Crestor) 5 mg PO HS [facility] Last Admin: 12/10/17 21:24 Dose: 5 mg Saccharomyces Boulardii (Florastor) 250 mg PO TID [facility] Last Admin: 12/11/17 17:00 Dose: 250 mg Fluticasone/Salmeterol (Advair Diskus 250/50) 1 puff INH RQ12 [facility] Tiotropium [place] (Spiriva) 18 mcg INH RQ24 [facility] Zolpidem Tartrate (Ambien) 5 mg PO HS PRN PRN Reason: Insomnia Last Admin: 12/10/17 21:24 Dose: 5 mg - Labs Labs: 12/11/17 07:41 12/11/17 07:41 PT 12.8 SECONDS (9.7-12.2) H 12/07/17 13:16 INR 1.2 12/07/17 13:16 APTT 34 SECONDS (21-34) 12/07/17 13:16
[2017-12-11] MEDS: Fluticasone-Salmeterol 250-50mcg Diskus INH SCH (19:31)
--- NOTE | 2017-12-11 22:31 | CP.PCM.CON ---
History of Present Illness - History of Present Illness History of Present Illness: Patient seen and evaluated Comfortable Diastolic CHF COPD Past Patient History - Past Medical History & Family History Past Medical History?: Yes - Past Social History Smoking Status: Never Smoked - CARDIAC Hx Cardiac Disorders: Yes Hx Angina: Yes Hx Atrial Fibrillation: No Hx Cardia Arrhythmia: No Hx Congestive Heart Failure: No Hx Heart Attack: No Hx Heart Murmur: No Hx Hypercholesterolemia: Yes Hx Hypertension: Yes Other/Comment: CABG - PULMONARY Hx Respiratory Disorders: No - NEUROLOGICAL Hx Neurological Disorder: No - HEENT Hx HEENT Problems: No - RENAL Hx Chronic Kidney Disease: No - ENDOCRINE/METABOLIC Hx Diabetes Mellitus Type 2: Yes Hx Hypothyroidism: Yes - HEMATOLOGICAL/ONCOLOGICAL Hx Blood Disorders: No - INTEGUMENTARY Hx Dermatological Problems: Yes Other/Comment: HX: SKIN LESION BACK OF NECK - MUSCULOSKELETAL/RHEUMATOLOGICAL Hx Arthritis: Yes (LB; L SHOULDER) - GASTROINTESTINAL Hx Gastrointestinal Disorders: No - GENITOURINARY/GYNECOLOGICAL Hx Genitourinary Disorders: No - PSYCHIATRIC Hx Substance Use: No - SURGICAL HISTORY Hx Coronary Artery Bypass Graft: Yes (CABG 3 VESSEL BYPASS 2002) - ANESTHESIA Hx Anesthesia: Yes Hx Anesthesia Reactions: No Meds Allergies/Adverse Reactions: Allergies Allergy/AdvReac Type Severity Reaction Status Date / Time No Known Allergies Allergy Verified 09/24/17 11:25 - Medications Medications: Current Medications Acetaminophen (Tylenol 325mg Tab) 650 mg PO Q6 PRN PRN Reason: Pain, moderate (4-7) Last Admin: 12/07/17 20:12 Dose: 650 mg Aspirin (Ecotrin) 81 mg PO DAILY [facility] Last Admin: 12/11/17 10:28 Dose: 81 mg Docusate Sodium (Colace) 100 mg PO BID [facility] Last Admin: 12/11/17 17:00 Dose: 100 mg Glipizide (Glucotrol) 5 mg PO ACB [facility] Last Admin: 12/11/17 18:03 Dose: 5 mg Guaifenesin (Robitussin) 100 mg PO Q4H PRN PRN Reason: Cough Last Admin: 12/10/17 17:32 Dose: 100 mg Heparin Sodium (Porcine) (Heparin) 5,000 units SC Q12 [facility] Last Admin: 12/11/17 21:03 Dose: 5,000 units Imipenem/Cilastatin Sodium 500 (mg/ Sodium Chloride) 100 mls @ 100 mls/hr IVPB Q8 [facility] PRN Reason: Protocol Last Admin: 12/11/17 21:03 Dose: 100 mls/hr Insulin Human Regular (Novolin R) 0 unit SC ACHS [facility] PRN Reason: Protocol Last Admin: 12/11/17 21:03 Dose: Not Given Levothyroxine Sodium (Synthroid) 125 mcg PO Q24H [facility] Last Admin: 12/11/17 05:54 Dose: 125 mcg Metoprolol Tartrate (Lopressor) 25 mg PO BID [facility] Last Admin: 12/11/17 17:00 Dose: 25 mg Nystatin (Nystatin Oral Susp) 5 ml PO QID [facility] Last Admin: 12/11/17 21:03 Dose: 5 ml Rosuvastatin Calcium (Crestor) 5 mg PO HS [facility] Last Admin: 12/11/17 21:03 Dose: 5 mg Saccharomyces Boulardii (Florastor) 250 mg PO TID [facility] Last Admin: 12/11/17 17:00 Dose: 250 mg Fluticasone/Salmeterol (Advair Diskus 250/50) 1 puff INH RQ12 [facility] Last Admin: 12/11/17 19:31 Dose: 1 puff Tiotropium [place] (Spiriva) 18 mcg INH RQ24 [facility] Zolpidem Tartrate (Ambien) 5 mg PO HS PRN PRN Reason: Insomnia Last Admin: 12/11/17 21:03 Dose: 5 mg Results - Vital Signs Recent Vital Signs: Last Vital Signs Temp 98.0 F 12/11/17 15:40 Pulse 79 12/11/17 18:00 Resp 20 12/11/17 15:40 BP 138/78 12/11/17 17:00 Pulse Ox 96 12/11/17 15:40 - Labs Result Diagrams: 12/11/17 07:41 12/11/17 07:41 Labs: Laboratory Results - last 24 hr 12/08/17 12/11/17 12/11/17 07:46 06:11 07:41 WBC 11.9 H RBC 3.23 L Hgb 9.8 L Hct 29.0 L MCV 89.8 MCH 30.4 MCHC 33.9 RDW 13.7 Plt Count 265 MPV 7.6 Neut % (Auto) 70.5 Lymph % (Auto) 17.0 L [place] % (Auto) 8.0 Eos % (Auto) 4.0 Baso % (Auto) 0.5 Neut # (Auto) 8.4 H Lymph # (Auto) 2.0 [place] # (Auto) 1.0 H Eos # (Auto) 0.5 Baso # (Auto) 0.1 Sodium Potassium Chloride Carbon Dioxide Anion Gap BUN Creatinine Est GFR ( Amer) Est GFR (Non-Af Amer) POC Glucose (mg/dL) 146 H Random Glucose Calcium Magnesium Total Bilirubin AST ALT Alkaline Phosphatase Total Protein Albumin Globulin Albumin/Globulin Ratio Mycoplasma pneumon IgM 67 12/11/17 12/11/17 12/11/17 07:41 11:34 16:38 WBC RBC Hgb Hct MCV MCH MCHC RDW Plt Count MPV Neut % (Auto) Lymph % (Auto) [place] % (Auto) Eos % (Auto) Baso % (Auto) Neut # (Auto) Lymph # (Auto) [place] # (Auto) Eos # (Auto) Baso # (Auto) Sodium 141 Potassium 3.9 Chloride 103 Carbon Dioxide 29 Anion Gap 14 BUN 12 Creatinine 0.9 Est GFR ( Amer) > 60 Est GFR (Non-Af Amer) 60 POC Glucose (mg/dL) 374 H 252 H Random Glucose 142 H Calcium 8.9 Magnesium 1.7 Total Bilirubin 0.8 AST 42 H D ALT 21 Alkaline Phosphatase 105 Total Protein 6.4 Albumin 2.9 L Globulin 3.5 Albumin/Globulin Ratio 0.9 L Mycoplasma pneumon IgM 12/11/17 21:01 WBC RBC Hgb Hct MCV MCH MCHC RDW Plt Count MPV Neut % (Auto) Lymph % (Auto) [place] % (Auto) Eos % (Auto) Baso % (Auto) Neut # (Auto) Lymph # (Auto) [place] # (Auto) Eos # (Auto) Baso # (Auto) Sodium Potassium Chloride Carbon Dioxide Anion Gap BUN Creatinine Est GFR ( Amer) Est GFR (Non-Af Amer) POC Glucose (mg/dL) 168 H Random Glucose Calcium Magnesium Total Bilirubin AST ALT Alkaline Phosphatase Total Protein Albumin Globulin Albumin/Globulin Ratio Mycoplasma pneumon IgM
--- NOTE | 2017-12-12 05:23 | CARD ---
APPROVED REPORT EXAM: Two-dimensional and M-mode echocardiogram with Doppler and color Doppler. INDICATION Cardiac Disease: CAD Congestive Heart Failure Surgery/Intervention CABG: RISK FACTORS Hypertension 2D DIMENSIONS IVSd0.7 (0.7-1.1cm)LVDd4.2 (3.9-5.9cm) PWd1.0 (0.7-1.1cm)LVDs2.5 (2.5-4.0cm) FS (%) 40.1 %LVEF (%)71.2 (>50%) M-Mode DIMENSIONS RVDd1.88 (2.1-3.2cm)Left Atrium (MM)3.09 (2.5-4.0cm) IVSd0.73 (0.7-1.1cm)Aortic Root3.29 (2.2-3.7cm) LVDd5.34 (4.0-5.6cm)Aortic Cusp Exc.1.97 (1.5-2.0cm) PWd0.70 (0.7-1.1cm)FS (%) 43 % LVDs3.07 (2.0-3.8cm)LVEF (%)73 (>50%) Aortic Valve AoV Peak [id number]/sAoV VTI31.3cmAO Peak GR.17mmHg AO Mean GR.8mmHgAI P 1/2 [id number] Mitral Valve MV E Sattfknb77.0cm/sMV A Lxiyctsc11.3cm/sE/A ratio0.8 TDI E/Lateral E'0.0E/Medial E'0.0 Tricuspid Valve TR Peak [id number]/sTR Peak Gr.[id number] LEFT VENTRICLE The left ventricle is normal size. There is normal left ventricular wall thickness. Left ventricle systolic function is normal. The Ejection Fraction is >70%. There is normal LV segmental wall motion. Tissue Doppler imaging reveals abnormal left ventricular diastolic dysfunction. RIGHT VENTRICLE The right ventricle is normal size. There is normal right ventricular wall thickness. The right ventricular systolic function is normal. ATRIA The left atrium size is normal. The right atrium size is normal. The interatrial septum is intact with no evidence for an atrial septal defect. AORTIC VALVE The aortic valve is probably bicuspid. There is trace to mild aortic regurgitation. There is no aortic valvular stenosis. There is no aortic valvular vegetation. MITRAL VALVE The mitral valve is normal in structure. There is no evidence of mitral valve prolapse. There is no mitral valve stenosis. There is no mitral valve regurgitation noted. TRICUSPID VALVE The tricuspid valve is normal in structure. There is mild tricuspid regurgitation. Right ventricular systolic pressure is estimated at 30-40 mmHg. There is mild pulmonary hypertension. PULMONIC VALVE The pulmonic valve is not well visualized. There is no pulmonic valvular regurgitation. GREAT VESSELS The aortic root is normal in size. PERICARDIAL EFFUSION There is no significant pericardial effusion. <Conclusion> Left ventricle systolic function is normal. The Ejection Fraction is >70%. Diastolic dysfunction. There is trace to mild aortic regurgitation. There is no mitral valve regurgitation noted. There is mild tricuspid regurgitation. There is mild pulmonary hypertension. There is no pulmonic valvular regurgitation.
[2017-12-12] MEDS: Imipenem/Cilastatin 500 MG in Sodium Chloride 100 ML IVPB SCH ×3 (06:00→21:39)
[2017-12-12] MEDS: Levothyroxine 125 MCG TAB PO SCH (06:00)
[2017-12-12] MEDS: (Novolin R) Insulin Human Regular 100 units/ml vial SC SCH ×4 (08:05→21:40)
[2017-12-12] MEDS: Fluticasone-Salmeterol 250-50mcg Diskus INH SCH ×2 (09:19→20:33)
[2017-12-12] MEDS: Nystatin 100,000 Units/ml Oral Susp 5 ml UD PO SCH ×4 (09:19→21:39)
[2017-12-12] MEDS: Tiotropium 18 mcg Cap For Inhalation INH SCH (09:19)
[2017-12-12] MEDS: Saccharomyces Boulardi 250 mg Cap PO SCH ×3 (09:19→17:27)
--- NOTE | 2017-12-12 09:52 | CP.PCM.PN ---
Subjective - Date & Time of Evaluation Date of Evaluation: 12/12/17 Time of Evaluation: 09:52 - Subjective Subjective: Patient is morning sitting up, comfortably. Cough still present. Wheezing noted. No chest pain. No nausea vomiting eating well, having bowel movements On examination: Vital signs are stable. Elevated blood pressure noted. Good air entry in expiratory wheezing and rales noted irregular heart sound abdomen soft nontender no pedal edema [employer] alert awake oriented 3 no functional neurological deficit current labs none today. Yesterday's labs reviewed Elevated glucose noted. Assessment and recommendation: 82-year-old female admitted with acute pneumonia, parapneumonic effusion. Diffuse lung disease. Wheezing CHF. Stable. We will add a low-dose steroid 1 more dose today. Monitor the blood sugar. Possible discharge planning me later today or tomorrow will follow the patient Objective - Vital Signs/Intake and Output Vital Signs (last 24 hours): Temp Pulse Resp BP Pulse Ox 97.7 F 60 20 130/76 98 12/12/17 07:25 12/12/17 07:25 12/12/17 07:25 12/12/17 09:19 12/12/17 07:25 Intake and Output: 12/12/17 12/12/17 06:59 18:59 Intake Total 100 Balance 100 - Medications Medications: Current Medications Acetaminophen (Tylenol 325mg Tab) 650 mg PO Q6 PRN PRN Reason: Pain, moderate (4-7) Last Admin: 12/07/17 20:12 Dose: 650 mg Aspirin (Ecotrin) 81 mg PO DAILY [facility] Last Admin: 12/12/17 09:19 Dose: 81 mg Docusate Sodium (Colace) 100 mg PO BID [facility] Last Admin: 12/12/17 09:19 Dose: 100 mg Glipizide (Glucotrol) 5 mg PO ACB [facility] Last Admin: 12/12/17 08:35 Dose: 5 mg Guaifenesin (Robitussin) 100 mg PO Q4H PRN PRN Reason: Cough Last Admin: 12/10/17 17:32 Dose: 100 mg Heparin Sodium (Porcine) (Heparin) 5,000 units SC Q12 [facility] Last Admin: 12/12/17 09:20 Dose: 5,000 units Imipenem/Cilastatin Sodium 500 (mg/ Sodium Chloride) 100 mls @ 100 mls/hr IVPB Q8 [facility] PRN Reason: Protocol Last Admin: 12/12/17 06:00 Dose: 100 mls/hr Insulin Human Regular (Novolin R) 0 unit SC ACHS [facility] PRN Reason: Protocol Last Admin: 12/12/17 08:05 Dose: Not Given Levothyroxine Sodium (Synthroid) 125 mcg PO Q24H [facility] Last Admin: 12/12/17 06:00 Dose: 125 mcg Metoprolol Tartrate (Lopressor) 25 mg PO BID [facility] Last Admin: 12/12/17 09:19 Dose: 25 mg Nystatin (Nystatin Oral Susp) 5 ml PO QID [facility] Last Admin: 12/12/17 09:19 Dose: 5 ml Rosuvastatin Calcium (Crestor) 5 mg PO HS [facility] Last Admin: 12/11/17 21:03 Dose: 5 mg Saccharomyces Boulardii (Florastor) 250 mg PO TID [facility] Last Admin: 12/12/17 09:19 Dose: 250 mg Fluticasone/Salmeterol (Advair Diskus 250/50) 1 puff INH RQ12 [facility] Last Admin: 12/12/17 09:19 Dose: 1 puff Tiotropium [place] (Spiriva) 18 mcg INH RQ24 [facility] Last Admin: 12/12/17 09:19 Dose: 18 mcg Zolpidem Tartrate (Ambien) 5 mg PO HS PRN PRN Reason: Insomnia Last Admin: 12/11/17 21:03 Dose: 5 mg - Labs Labs: 12/11/17 07:41 12/11/17 07:41 PT 12.8 SECONDS (9.7-12.2) H 12/07/17 13:16 INR 1.2 12/07/17 13:16 APTT 34 SECONDS (21-34) 12/07/17 13:16
[2017-12-12] MEDS ORDERED: MethylPREDNISolone 40 mg Vial IVP ONE (09:53)
[2017-12-12] MEDS: guaiFENesin 100 mg/5 ml Syrup UD PO PRN ×2 (13:29→21:38)
[2017-12-13] MEDS: Levothyroxine 125 MCG TAB PO SCH (05:50)
[2017-12-13] MEDS: Imipenem/Cilastatin 500 MG in Sodium Chloride 100 ML IVPB SCH ×3 (05:50→21:43)
[2017-12-13] MEDS: (Novolin R) Insulin Human Regular 100 units/ml vial SC SCH ×4 (08:29→21:45)
--- NOTE | 2017-12-13 08:40 | CP.PCM.PN ---
Subjective - Date & Time of Evaluation Date of Evaluation: 12/12/17 Time of Evaluation: 15:30 - Subjective Subjective: Patient seen and evaluated Much more comfortable today Good air entry of lungs Diastolic CHF Normal EF Mild AI HR around 44 in the night Not a concern. Patient on B blockers Will decrease B blockers to 12.5 mg po bid Objective - Vital Signs/Intake and Output Vital Signs (last 24 hours): Temp Pulse Resp BP Pulse Ox 97.9 F 58 L 20 143/77 96 12/13/17 07:00 12/13/17 07:00 12/13/17 07:00 12/13/17 07:00 12/13/17 07:00 Intake and Output: 12/13/17 12/13/17 06:59 18:59 Intake Total 820 Balance 820 - Medications Medications: Current Medications Acetaminophen (Tylenol 325mg Tab) 650 mg PO Q6 PRN PRN Reason: Pain, moderate (4-7) Last Admin: 12/07/17 20:12 Dose: 650 mg Aspirin (Ecotrin) 81 mg PO DAILY [facility] Last Admin: 12/12/17 09:19 Dose: 81 mg Docusate Sodium (Colace) 100 mg PO BID [facility] Last Admin: 12/12/17 17:26 Dose: 100 mg Glipizide (Glucotrol) 5 mg PO ACB [facility] Last Admin: 12/13/17 08:34 Dose: 5 mg Guaifenesin (Robitussin) 100 mg PO Q4H PRN PRN Reason: Cough Last Admin: 12/12/17 21:38 Dose: 100 mg Heparin Sodium (Porcine) (Heparin) 5,000 units SC Q12 [facility] Last Admin: 12/12/17 21:40 Dose: 5,000 units Imipenem/Cilastatin Sodium 500 (mg/ Sodium Chloride) 100 mls @ 100 mls/hr IVPB Q8 [facility] PRN Reason: Protocol Last Admin: 12/13/17 05:50 Dose: 100 mls/hr Insulin Human Regular (Novolin R) 0 unit SC ACHS [facility] PRN Reason: Protocol Last Admin: 12/13/17 08:29 Dose: Not Given Levothyroxine Sodium (Synthroid) 125 mcg PO Q24H [facility] Last Admin: 12/13/17 05:50 Dose: 125 mcg Metoprolol Tartrate (Lopressor) 25 mg PO BID [facility] Last Admin: 12/12/17 17:27 Dose: 25 mg Rosuvastatin Calcium (Crestor) 5 mg PO HS [facility] Last Admin: 12/12/17 21:39 Dose: 5 mg Saccharomyces Boulardii (Florastor) 250 mg PO TID [facility] Last Admin: 12/12/17 17:27 Dose: 250 mg Fluticasone/Salmeterol (Advair Diskus 250/50) 1 puff INH RQ12 [facility] Last Admin: 12/12/17 20:33 Dose: 1 puff Tiotropium [place] (Spiriva) 18 mcg INH RQ24 [facility] Last Admin: 12/12/17 09:19 Dose: 18 mcg - Labs Labs: 12/11/17 07:41 12/11/17 07:41 PT 12.8 SECONDS (9.7-12.2) H 12/07/17 13:16 INR 1.2 12/07/17 13:16 APTT 34 SECONDS (21-34) 12/07/17 13:16 Assessment and Plan - Assessment and Plan (Free Text) Assessment: Patient seen and evaluated Much more comfortable today Good air entry of lungs Diastolic CHF Normal EF Mild AI HR around 44 in the night Not a concern. Patient on B blockers Will decrease B blockers to 12.5 mg po bid
[2017-12-13 08:51] LABS: BASO # 0.1 K/uL (0.0-0.2); BASO % 0.5 % (0.0-2.0); EOS # 0.4 K/uL (0.0-0.7); EOS % 3.1 % (0.0-4.0); LYMPH # 4.3 K/uL (1.0-4.3); LYMPH % 30.7 % (20.0-40.0); MEAN CELL VOLUME 89.8 fL (81.0-99.0); MEAN CORPUSCULAR HEMOGLOBIN 30.3 pg (27.0-31.0); MEAN CORPUSCULAR HGB CONC 33.7 g/dL (33.0-37.0); MEAN PLATELET VOLUME 7.8 fL (7.2-11.7); MONO % 7.1 % (0.0-10.0); NEUT # 8.2 K/uL (1.8-7.0); NEUT % 58.6 % (50.0-75.0); NRBC % 0.1 % (0.0-2.0); RBC 3.65 Mil/uL (3.80-5.20); WHITE BLOOD COUNT 13.9 K/uL (4.8-10.8)
[2017-12-13 08:57] LABS: PLATELET COUNT 382 K/uL (130-400)
[2017-12-13 09:37] LABS: ALB/GLOB RATIO 0.9 (1.0-2.1); ALBUMIN 3.2 g/dL (3.5-5.0); ALT/SGPT 26 U/L (9-52); AST/SGOT 60 U/L (14-36); BLOOD UREA NITROGEN 16 mg/dL (7-17); CALCIUM 9.4 mg/dl (8.6-10.4); GFR AFRICAN-AMERICAN > 60; GFR NON-AFRICAN AMERICAN > 60
[2017-12-13 09:57] LABS: BANDS 8 % (0-2); EOSINOPHIL 3 % (0-4); LYMPHOCYTE 34 % (20-40); METAMYELOCYTE 3 % (0-0); MONOCYTE 4 % (0-10); MYELOCYTE 4 % (0-0); NEUTROPHIL 42 % (50-75); PLATELET ESTIMATE NORMAL (NORMAL); PROMYELOCYTE 1 % (0-0); REACTIVE LYMPHOCYTES 1 % (0-0); TOTAL CELLS COUNTED 100
[2017-12-13] MEDS: Saccharomyces Boulardi 250 mg Cap PO SCH ×3 (09:59→17:23)
[2017-12-13] MEDS: Tiotropium 18 mcg Cap For Inhalation INH SCH (10:36)
[2017-12-13] MEDS: Fluticasone-Salmeterol 250-50mcg Diskus INH SCH ×2 (10:36→19:06)
--- NOTE | 2017-12-13 13:22 | CP.PCM.PN ---
Subjective - Date & Time of Evaluation Date of Evaluation: 12/13/17 Time of Evaluation: 13:22 - Subjective Subjective: The patient is 82-year-old female with history of hypertension, CAD, status post CABG, hypothyroidism brought into the emergency room by the family member because of the left-sided pleuritic chest pain off less than 1 week duration. Initially patient did not have much cough, she started having severe pain in the left-sided lower chest area, worsening with deep respiration, and coughing. She was also feeling increasingly weakness, fatigue, tiredness, and unable to walk for almost 1 week. She was not eating well. She returned recently from [facility]. Past medical history hypothyroidism, hypertension, CAD, status post CABG Functional capacity is normal. To the hospitalization. Patient had surgery done in 2002 Nonalcoholic non-smoker Upon admission patient has a good air entry bilaterally but decreased on the left lower lung. She was extremely weak. Bilateral no pedal edema noted. Moving lower extremities. Labs showing evidence of elevated WBC, with the neutrophilia. X-ray showing evidence of left lower lung pneumonia. She underwent a CT scan of the chest with contrast showing evidence of no PE, but left lower lung atelectasis, consolidation, and pleural effusion. Patient hospitalized with acute pneumonia, most likely community-acquired Patient started initially on antibiotic Zosyn. Vancomycin 1 dose given. Zithromax was also given. Initial cultures were negative. Blood cultures are negative. Patient's WBC is slowly improved. Course in the hospital: While she was recovering patient developed increasing coughing, increasing shortness of breath. She underwent echocardiogram on , ejection fraction is more than 70%. LVH normal mild pulmonary hypertension, and tricuspid and mitral valve regurgitation minimal Spoke to the garbage truck helper. Underlying diastolic heart failure could not be ruled out. But patient showed improvement with IV Lasix. Patient persistently having cough. But some improvement noted today. 2 doses of Solu-Medrol given, with that the patient was feeling some better. Patient is currently eating better, vital signs stable. Ambulating well. Repeat CAT scan also showing no evidence of worsening pneumonia. X-ray of the chest done today showing evidence of persistent left lower lung small infiltrate, and effusion. Otherwise x-ray is nonspecific Final diagnosis: Acute pneumonia Most likely community-acquired pneumonia. Diastolic heart failure. Improved with the Lasix. Patient will continue antibiotic orally. Bronchodilators. Physical therapy advised. Patient will follow-up as an outpatient. Objective - Vital Signs/Intake and Output Vital Signs (last 24 hours): Temp Pulse Resp BP Pulse Ox 97.9 F 59 L 18 147/78 97 12/13/17 07:00 12/13/17 09:58 12/13/17 09:58 12/13/17 09:58 12/13/17 09:58 Intake and Output: 12/13/17 12/13/17 06:59 18:59 Intake Total 820 Balance 820 - Medications Medications: Current Medications Acetaminophen (Tylenol 325mg Tab) 650 mg PO Q6 PRN PRN Reason: Pain, moderate (4-7) Last Admin: 12/07/17 20:12 Dose: 650 mg Aspirin (Ecotrin) 81 mg PO DAILY [facility] Last Admin: 12/13/17 09:59 Dose: 81 mg Docusate Sodium (Colace) 100 mg PO BID [facility] Last Admin: 12/13/17 09:58 Dose: 100 mg Glipizide (Glucotrol) 5 mg PO ACB [facility] Last Admin: 12/13/17 08:34 Dose: 5 mg Guaifenesin (Robitussin) 100 mg PO Q4H PRN PRN Reason: Cough Last Admin: 12/12/17 21:38 Dose: 100 mg Heparin Sodium (Porcine) (Heparin) 5,000 units SC Q12 [facility] Last Admin: 12/13/17 09:59 Dose: 5,000 units Imipenem/Cilastatin Sodium 500 (mg/ Sodium Chloride) 100 mls @ 100 mls/hr IVPB Q8 [facility] PRN Reason: Protocol Last Admin: 12/13/17 05:50 Dose: 100 mls/hr Insulin Human Regular (Novolin R) 0 unit SC ACHS [facility] PRN Reason: Protocol Last Admin: 12/13/17 12:16 Dose: 2 unit Levothyroxine Sodium (Synthroid) 125 mcg PO Q24H [facility] Last Admin: 12/13/17 05:50 Dose: 125 mcg Losartan Potassium (Cozaar) 50 mg PO DAILY [facility] Metformin HCl (Glucophage) 500 mg PO DAILY [facility] Metoprolol Succinate (Toprol Xl) 25 mg PO DAILY [facility] Rosuvastatin Calcium (Crestor) 5 mg PO HS [facility] Last Admin: 12/12/17 21:39 Dose: 5 mg Rosuvastatin Calcium (Crestor) 5 mg PO HS [facility] Saccharomyces Boulardii (Florastor) 250 mg PO TID [facility] Last Admin: 12/13/17 09:59 Dose: 250 mg Fluticasone/Salmeterol (Advair Diskus 250/50) 1 puff INH RQ12 [facility] Last Admin: 12/13/17 10:36 Dose: Not Given Tiotropium [place] (Spiriva) 18 mcg INH RQ24 [facility] Last Admin: 12/13/17 10:36 Dose: Not Given - Labs Labs: 12/13/17 08:31 12/13/17 08:31 PT 12.8 SECONDS (9.7-12.2) H 12/07/17 13:16 INR 1.2 12/07/17 13:16 APTT 34 SECONDS (21-34) 12/07/17 13:16
--- NOTE | 2017-12-13 14:16 | RAD ---
HISTORY: PNA COMPARISON: Comparison is made with 12/10/2017 TECHNIQUE: Chest PA and lateral FINDINGS: LUNGS: Interval improvement in the lungs since the previous exam. PLEURA: Left pleural effusion is again noted. CARDIOVASCULAR: The cardiac silhouette is normal in size. Post sternotomy changes are again noted. OSSEOUS STRUCTURES: No significant abnormalities. VISUALIZED UPPER ABDOMEN: Normal. OTHER FINDINGS: None. IMPRESSION: Interval improvement in the lungs since the previous exam. Re- demonstration of left pleural effusion.
[2017-12-13 17:16] VITALS: RESP 20
[2017-12-14] MEDS: Imipenem/Cilastatin 500 MG in Sodium Chloride 100 ML IVPB SCH ×3 (06:28→21:45)
[2017-12-14] MEDS: Levothyroxine 125 MCG TAB PO SCH (06:29)
[2017-12-14] MEDS: (Novolin R) Insulin Human Regular 100 units/ml vial SC SCH ×4 (08:20→21:47)
[2017-12-14] MEDS: Saccharomyces Boulardi 250 mg Cap PO SCH ×3 (09:55→17:27)
[2017-12-14] MEDS: Metoprolol Succinate 25 mg XL Tab PO SCH (09:55)
[2017-12-14] MEDS: Fluticasone-Salmeterol 250-50mcg Diskus INH SCH ×2 (10:15→19:12)
[2017-12-14] MEDS: Tiotropium 18 mcg Cap For Inhalation INH SCH (10:15)
--- NOTE | 2017-12-14 21:31 | CP.PCM.PN ---
Subjective - Date & Time of Evaluation Date of Evaluation: 12/14/17 Time of Evaluation: 20:00 - Subjective Subjective: No acute cardiac events Objective - Vital Signs/Intake and Output Vital Signs (last 24 hours): Temp Pulse Resp BP Pulse Ox 97.8 F 81 20 137/79 97 12/14/17 15:00 12/14/17 17:00 12/14/17 15:00 12/14/17 15:00 12/14/17 15:00 Intake and Output: 12/14/17 12/15/17 18:59 06:59 Intake Total 840 Balance 840 - Medications Medications: Current Medications Acetaminophen (Tylenol 325mg Tab) 650 mg PO Q6 PRN PRN Reason: Pain, moderate (4-7) Last Admin: 12/07/17 20:12 Dose: 650 mg Aspirin (Ecotrin) 81 mg PO DAILY [facility] Last Admin: 12/14/17 09:54 Dose: 81 mg Docusate Sodium (Colace) 100 mg PO BID [facility] Last Admin: 12/14/17 17:27 Dose: 100 mg Glipizide (Glucotrol) 5 mg PO ACB [facility] Last Admin: 12/14/17 08:51 Dose: 5 mg Guaifenesin (Robitussin) 100 mg PO Q4H PRN PRN Reason: Cough Last Admin: 12/12/17 21:38 Dose: 100 mg Heparin Sodium (Porcine) (Heparin) 5,000 units SC Q12 [facility] Last Admin: 12/14/17 09:55 Dose: 5,000 units Imipenem/Cilastatin Sodium 500 (mg/ Sodium Chloride) 100 mls @ 100 mls/hr IVPB Q8 [facility] PRN Reason: Protocol Last Admin: 12/14/17 13:05 Dose: 100 mls/hr Insulin Human Regular (Novolin R) 0 unit SC ACHS [facility] PRN Reason: Protocol Last Admin: 12/14/17 17:27 Dose: Not Given Levothyroxine Sodium (Synthroid) 125 mcg PO Q24H [facility] Last Admin: 12/14/17 06:29 Dose: 125 mcg Losartan Potassium (Cozaar) 50 mg PO DAILY [facility] Last Admin: 12/14/17 09:55 Dose: 50 mg Metformin HCl (Glucophage) 500 mg PO DAILY [facility] Last Admin: 12/14/17 09:54 Dose: 500 mg Metoprolol Succinate (Toprol Xl) 25 mg PO DAILY [facility] Last Admin: 12/14/17 09:55 Dose: 25 mg Rosuvastatin Calcium (Crestor) 5 mg PO HS [facility] Last Admin: 12/13/17 21:42 Dose: 5 mg Rosuvastatin Calcium (Crestor) 5 mg PO HS [facility] Last Admin: 12/13/17 22:49 Dose: Not Given Saccharomyces Boulardii (Florastor) 250 mg PO TID [facility] Last Admin: 12/14/17 17:27 Dose: 250 mg Fluticasone/Salmeterol (Advair Diskus 250/50) 1 puff INH RQ12 [facility] Last Admin: 12/14/17 19:12 Dose: 1 puff Tiotropium [place] (Spiriva) 18 mcg INH RQ24 [facility] Last Admin: 12/14/17 10:15 Dose: 18 mcg Zolpidem Tartrate (Ambien) 5 mg PO HS PRN PRN Reason: Insomnia Last Admin: 12/13/17 21:42 Dose: 5 mg - Labs Labs: 12/13/17 08:31 12/13/17 08:31 PT 12.8 SECONDS (9.7-12.2) H 12/07/17 13:16 INR 1.2 12/07/17 13:16 APTT 34 SECONDS (21-34) 12/07/17 13:16
[2017-12-15 01:44] VITALS: TEMP 98.2
[2017-12-15] MEDS: Imipenem/Cilastatin 500 MG in Sodium Chloride 100 ML IVPB SCH (05:33)
[2017-12-15] MEDS: Levothyroxine 125 MCG TAB PO SCH (05:33)
[2017-12-15 07:34] VITALS: BP 133/80; PULSE 65; O2SAT 96
[2017-12-15] MEDS: (Novolin R) Insulin Human Regular 100 units/ml vial SC SCH (07:45)
--- NOTE | 2017-12-15 08:30 | CP.PCM.PN ---
Subjective - Date & Time of Evaluation Date of Evaluation: 12/14/17 Time of Evaluation: 08:29 - Subjective Subjective: Patient is comfortable not in any distress. Still coughing noted. On examination: Vital signs stable. Chest good air entry bilaterally regular heart sound nontender abdomen edema negative Labs reviewed Patient is likely stable. She will continue on more day of IV antibiotic. Possible discharge plan tomorrow Objective - Vital Signs/Intake and Output Vital Signs (last 24 hours): Temp Pulse Resp BP Pulse Ox 98.2 F 65 20 133/80 96 12/15/17 07:10 12/15/17 07:10 12/15/17 07:10 12/15/17 07:10 12/15/17 07:10 Intake and Output: 12/15/17 12/15/17 06:59 18:59 Intake Total 100 Balance 100 - Medications Medications: Current Medications Acetaminophen (Tylenol 325mg Tab) 650 mg PO Q6 PRN PRN Reason: Pain, moderate (4-7) Last Admin: 12/07/17 20:12 Dose: 650 mg Aspirin (Ecotrin) 81 mg PO DAILY [facility] Last Admin: 12/14/17 09:54 Dose: 81 mg Docusate Sodium (Colace) 100 mg PO BID [facility] Last Admin: 12/14/17 17:27 Dose: 100 mg Glipizide (Glucotrol) 5 mg PO ACB [facility] Last Admin: 12/15/17 07:55 Dose: 5 mg Guaifenesin (Robitussin) 100 mg PO Q4H PRN PRN Reason: Cough Last Admin: 12/12/17 21:38 Dose: 100 mg Heparin Sodium (Porcine) (Heparin) 5,000 units SC Q12 [facility] Last Admin: 12/14/17 21:44 Dose: 5,000 units Imipenem/Cilastatin Sodium 500 (mg/ Sodium Chloride) 100 mls @ 100 mls/hr IVPB Q8 [facility] PRN Reason: Protocol Last Admin: 12/15/17 05:33 Dose: 100 mls/hr Insulin Human Regular (Novolin R) 0 unit SC ACHS [facility] PRN Reason: Protocol Last Admin: 12/15/17 07:45 Dose: Not Given Levothyroxine Sodium (Synthroid) 125 mcg PO Q24H [facility] Last Admin: 12/15/17 05:33 Dose: 125 mcg Losartan Potassium (Cozaar) 50 mg PO DAILY [facility] Last Admin: 12/14/17 09:55 Dose: 50 mg Metformin HCl (Glucophage) 500 mg PO DAILY [facility] Last Admin: 12/14/17 09:54 Dose: 500 mg Metoprolol Succinate (Toprol Xl) 25 mg PO DAILY [facility] Last Admin: 12/14/17 09:55 Dose: 25 mg Rosuvastatin Calcium (Crestor) 5 mg PO HS [facility] Last Admin: 12/14/17 21:44 Dose: 5 mg Rosuvastatin Calcium (Crestor) 5 mg PO HS [facility] Last Admin: 12/13/17 22:49 Dose: Not Given Saccharomyces Boulardii (Florastor) 250 mg PO TID [facility] Last Admin: 12/14/17 17:27 Dose: 250 mg Fluticasone/Salmeterol (Advair Diskus 250/50) 1 puff INH RQ12 [facility] Last Admin: 12/14/17 19:12 Dose: 1 puff Tiotropium [place] (Spiriva) 18 mcg INH RQ24 [facility] Last Admin: 12/14/17 10:15 Dose: 18 mcg Zolpidem Tartrate (Ambien) 5 mg PO HS PRN PRN Reason: Insomnia Last Admin: 12/14/17 21:44 Dose: 5 mg - Labs Labs: 12/13/17 08:31 12/13/17 08:31 PT 12.8 SECONDS (9.7-12.2) H 12/07/17 13:16 INR 1.2 12/07/17 13:16 APTT 34 SECONDS (21-34) 12/07/17 13:16
[2017-12-15] MEDS: Saccharomyces Boulardi 250 mg Cap PO SCH (09:30)
[2017-12-15] MEDS: Metoprolol Succinate 25 mg XL Tab PO SCH (09:31)
[2017-12-15] MEDS: Tiotropium 18 mcg Cap For Inhalation INH SCH (10:03)
[2017-12-15] MEDS: Fluticasone-Salmeterol 250-50mcg Diskus INH SCH (10:03)
--- NOTE | 2017-12-15 10:50 | CP.PCM.PN ---
Subjective - Date & Time of Evaluation Date of Evaluation: 12/15/17 Time of Evaluation: 10:50 - Subjective Subjective: PATIENT AAOX3 , DENIES CHEST PAIN OR SOB NO SIGN OF DISTRESS NOTED Objective - Vital Signs/Intake and Output Vital Signs (last 24 hours): Temp Pulse Resp BP Pulse Ox 98.2 F 65 20 133/80 96 12/15/17 07:10 12/15/17 07:10 12/15/17 07:10 12/15/17 07:10 12/15/17 07:10 Intake and Output: 12/15/17 12/15/17 06:59 18:59 Intake Total 100 Balance 100 - Medications Medications: Current Medications Acetaminophen (Tylenol 325mg Tab) 650 mg PO Q6 PRN PRN Reason: Pain, moderate (4-7) Last Admin: 12/07/17 20:12 Dose: 650 mg Aspirin (Ecotrin) 81 mg PO DAILY [facility] Last Admin: 12/15/17 09:30 Dose: 81 mg Docusate Sodium (Colace) 100 mg PO BID [facility] Last Admin: 12/15/17 09:29 Dose: 100 mg Glipizide (Glucotrol) 5 mg PO ACB [facility] Last Admin: 12/15/17 07:55 Dose: 5 mg Guaifenesin (Robitussin) 100 mg PO Q4H PRN PRN Reason: Cough Last Admin: 12/12/17 21:38 Dose: 100 mg Heparin Sodium (Porcine) (Heparin) 5,000 units SC Q12 [facility] Last Admin: 12/15/17 09:30 Dose: 5,000 units Imipenem/Cilastatin Sodium 500 (mg/ Sodium Chloride) 100 mls @ 100 mls/hr IVPB Q8 [facility] PRN Reason: Protocol Last Admin: 12/15/17 05:33 Dose: 100 mls/hr Insulin Human Regular (Novolin R) 0 unit SC ACHS [facility] PRN Reason: Protocol Last Admin: 12/15/17 07:45 Dose: Not Given Levothyroxine Sodium (Synthroid) 125 mcg PO Q24H [facility] Last Admin: 12/15/17 05:33 Dose: 125 mcg Losartan Potassium (Cozaar) 50 mg PO DAILY [facility] Last Admin: 12/15/17 09:30 Dose: 50 mg Metformin HCl (Glucophage) 500 mg PO DAILY [facility] Last Admin: 12/15/17 09:30 Dose: 500 mg Metoprolol Succinate (Toprol Xl) 25 mg PO DAILY [facility] Last Admin: 12/15/17 09:31 Dose: 25 mg Rosuvastatin Calcium (Crestor) 5 mg PO HS [facility] Last Admin: 12/14/17 21:44 Dose: 5 mg Rosuvastatin Calcium (Crestor) 5 mg PO HS [facility] Last Admin: 12/13/17 22:49 Dose: Not Given Saccharomyces Boulardii (Florastor) 250 mg PO TID [facility] Last Admin: 12/15/17 09:30 Dose: 250 mg Fluticasone/Salmeterol (Advair Diskus 250/50) 1 puff INH RQ12 [facility] Last Admin: 12/15/17 10:03 Dose: 1 puff Tiotropium [place] (Spiriva) 18 mcg INH RQ24 [facility] Last Admin: 12/15/17 10:03 Dose: 18 mcg Zolpidem Tartrate (Ambien) 5 mg PO HS PRN PRN Reason: Insomnia Last Admin: 12/14/17 21:44 Dose: 5 mg - Labs Labs: 12/13/17 08:31 12/13/17 08:31 PT 12.8 SECONDS (9.7-12.2) H 12/07/17 13:16 INR 1.2 12/07/17 13:16 APTT 34 SECONDS (21-34) 12/07/17 13:16 Assessment and Plan - Assessment and Plan (Free Text) Assessment: PATIENT SEEN AND EXAMINED AT THE BEDSIDE ON ROOM AIR SATUREATED AT 96% LUNG SOUND CLEAR [place] PER DR MORENO PATIENT IS CLEAR FOR DC FOLLOW UP WITH DR MORENO IN 1-2 WEEKS AT HIS OFFICE --CALL FOR APPOINTMENT CONTINUE YOUR MEDICATION ORDER BY DR MORENO ACTIVITY TOLERATED CALL DR MORENO OR GO TO THE EMERGENCY ROOM IF SYMPTOMS RETURN OR WORSENING DISCUSS WITH PATIENT WHO AGREE AND VERBALIZED UNDERSTANDING
--- NOTE | 2017-12-16 22:06 | CP.PCM.DIS ---
Provider - Provider Date of Admission: 12/08/17 18:17 Attending physician: Win De La Torre MD Time Spent in preparation of Discharge (in minutes): 45 Hospital Course - Lab Results Lab Results: Micro Results 12/07/17 13:40 Blood-Venous Blood Culture - Final NO GROWTH AFTER 5 DAYS 12/07/17 13:40 Blood-Venous Gram Stain - Final TEST NOT PERFORMED 12/07/17 13:00 Blood-Venous Blood Culture - Final NO GROWTH AFTER 5 DAYS 12/07/17 13:00 Blood-Venous Gram Stain - Final TEST NOT PERFORMED 12/08/17 07:12 Urine,Clean Catch Urine Culture - Final No Growth (<1,000 CFU/ML) 12/07/17 15:03 Sputum Gram Stain - Final 12/07/17 15:03 Sputum Sputum Culture - Final NORMAL ORAL GIULIANA Most Recent Lab Values WBC 13.9 K/uL (4.8-10.8) H 12/13/17 08:31 RBC 3.65 Mil/uL (3.80-5.20) L 12/13/17 08:31 Hgb 11.0 g/dL (11.0-16.0) 12/13/17 08:31 Hct 32.8 % (34.0-47.0) L 12/13/17 08:31 MCV 89.8 fL (81.0-99.0) 12/13/17 08:31 MCH 30.3 pg (27.0-31.0) 12/13/17 08:31 MCHC 33.7 g/dL (33.0-37.0) 12/13/17 08:31 RDW 14.0 % (11.5-14.5) 12/13/17 08:31 Plt Count 382 K/uL (130-400) D 12/13/17 08:31 MPV 7.8 fL (7.2-11.7) 12/13/17 08:31 Neut % (Auto) 58.6 % (50.0-75.0) 12/13/17 08:31 Lymph % (Auto) 30.7 % (20.0-40.0) 12/13/17 08:31 [place] % (Auto) 7.1 % (0.0-10.0) 12/13/17 08:31 Eos % (Auto) 3.1 % (0.0-4.0) 12/13/17 08:31 Baso % (Auto) 0.5 % (0.0-2.0) 12/13/17 08:31 Neut # (Auto) 8.2 K/uL (1.8-7.0) H 12/13/17 08:31 Lymph # (Auto) 4.3 K/uL (1.0-4.3) 12/13/17 08:31 [place] # (Auto) 1.0 K/uL (0.0-0.8) H 12/13/17 08:31 Eos # (Auto) 0.4 K/uL (0.0-0.7) 12/13/17 08:31 Baso # (Auto) 0.1 K/uL (0.0-0.2) 12/13/17 08:31 Neutrophils % (Manual) 42 % (50-75) L 12/13/17 08:31 Band Neutrophils % 8 % (0-2) H 12/13/17 08:31 Lymphocytes % (Manual) 34 % (20-40) 12/13/17 08:31 Reactive Lymphs % 1 % (0-0) H 12/13/17 08:31 Monocytes % (Manual) 4 % (0-10) 12/13/17 08:31 Eosinophils % (Manual) 3 % (0-4) 12/13/17 08:31 Metamyelocytes % 3 % (0-0) H 12/13/17 08:31 Myelocytes % 4 % (0-0) H 12/13/17 08:31 Promyelocytes % 1 % (0-0) H 12/13/17 08:31 Platelet Estimate Normal (NORMAL) 12/13/17 08:31 RBC Morphology Normal 12/13/17 08:31 Hypochromasia (manual) Slight 12/08/17 07:46 Poikilocytosis (manual Slight 12/08/17 07:46 Anisocytosis (manual) Slight 12/08/17 07:46 Target Cells Slight 12/08/17 07:46 PT 12.8 SECONDS (9.7-12.2) H 12/07/17 13:16 INR 1.2 12/07/17 13:16 APTT 34 SECONDS (21-34) 12/07/17 13:16 D-Dimer, Quantitative 548 ng/mlDDU (0-243) H 12/07/17 13:16 Sodium 142 mmol/L (132-148) 12/13/17 08:31 Potassium 4.2 mmol/L (3.6-5.2) 12/13/17 08:31 Chloride 101 mmol/L (98-107) 12/13/17 08:31 Carbon Dioxide 30 mmol/L (22-30) 12/13/17 08:31 Anion Gap 15 (10-20) 12/13/17 08:31 BUN 16 mg/dL (7-17) 12/13/17 08:31 Creatinine 0.8 mg/dL (0.7-1.2) 12/13/17 08:31 Est GFR ( Amer) > 60 12/13/17 08:31 Est GFR (Non-Af Amer) > 60 12/13/17 08:31 POC Glucose (mg/dL) 130 mg/dL (65-110) H 12/15/17 11:08 Random Glucose 153 mg/dL (65-105) H 12/13/17 08:31 Calcium 9.4 mg/dl (8.6-10.4) 12/13/17 08:31 Magnesium 1.9 mg/dL (1.6-2.3) 12/13/17 08:31 Total Bilirubin 0.2 mg/dL (0.2-1.3) 12/13/17 08:31 AST 60 U/L (14-36) H D 12/13/17 08:31 ALT 26 U/L (9-52) 12/13/17 08:31 Alkaline Phosphatase 111 U/L (38-126) 12/13/17 08:31 Lactate Dehydrogenase 401 U/L (313-618) 12/10/17 07:28 Total Creatine Kinase 67 U/L (30-135) 12/10/17 20:14 CK-MB (Mass) 1.34 ng/mL (0.0-3.38) 12/10/17 20:14 Troponin I 0.0150 ng/mL (0.00-0.120) 12/10/17 20:14 NT-Pro-B Natriuret Pep 1540 pg/mL (0-900) H 12/10/17 20:14 Total Protein 7.0 g/dL (6.3-8.3) 12/13/17 08:31 Albumin 3.2 g/dL (3.5-5.0) L 12/13/17 08:31 Globulin 3.8 gm/dL (2.2-3.9) 12/13/17 08:31 Albumin/Globulin Ratio 0.9 (1.0-2.1) L 12/13/17 08:31 Lipase 162 U/L (23-300) 12/07/17 13:16 Urine Color Yellow (YELLOW) 12/08/17 07:12 Urine Clarity Hazy (Clear) 12/08/17 07:12 Urine pH 5.0 (5.0-8.0) 12/08/17 07:12 Ur Specific [place] 1.015 (1.003-1.030) 12/08/17 07:12 Urine Protein 1+ mg/dL (NEGATIVE) H 12/08/17 07:12 Urine Glucose (UA) Normal mg/dL (Normal) 12/08/17 07:12 Urine Ketones Negative mg/dL (NEGATIVE) 12/08/17 07:12 Urine Blood Negative (NEGATIVE) 12/08/17 07:12 Urine Nitrate Negative (NEGATIVE) 12/08/17 07:12 Urine Bilirubin Negative (NEGATIVE) 12/08/17 07:12 Urine Urobilinogen Normal mg/dL (0.2-1.0) 12/08/17 07:12 Ur Leukocyte Esterase 1+ [place]/uL (Negative) H 12/08/17 07:12 Urine WBC (Auto) 6 /hpf (0-5) H 12/08/17 07:12 Urine RBC (Auto) 6 /hpf (0-3) H 12/08/17 07:12 Ur Squamous Epith Cells 3 /hpf (0-5) 12/08/17 07:12 Amorphous Sediment Rare /ul (<OCC) H 12/08/17 07:12 H.influenzae Type B Ag Cancelled 12/08/17 07:12 Ur L.pneumophila Ag Negative (NEGATIVE) 12/08/17 07:12 Mycoplasma pneumon IgG 1.49 (<=0.90) H 12/08/17 07:46 Mycoplasma pneumon IgM 67 U/mL (<770) 12/08/17 07:46 N.meningitidis ACY/W135 Cancelled 12/08/17 07:12 N.meningi B/E.coli K1 Ag Cancelled 12/08/17 07:12 Group B Strep Antigen Cancelled 12/08/17 07:12 S. pneumoniae Antigen Cancelled 12/08/17 07:12 - Hospital Course Hospital Course: Chief complaints: Weakness, left-sided pleuritic chest pain HPI: 82-year-old female with history of hypertension, CAD, status post a CABG, hypothyroidism came to the emergency room with the pleuritic chest pain on the left side. Patient recently went to [facility], returned from [facility] 4 days ago. While she was there she did not have any illness. But 2 days later she started noticing increasing weakness, not able to eat well , progressively worsening left-sided pain in the chest. The pain was sometimes severe, unable to take a deep breath, sharp pain noted, associated with a minimal cough. Not able to produce any mucus production. Splinting pain noted in the left lower chest area. Patient did not have any fever, no chills. But increasingly weakness, poor intake, loss of appetite noted. No recent sick exposure. Past medical history: Hypothyroidism, hypertension, CAD, status post CABG Surgical history: Surgical post-CABG in 2002 Allergy no known drug allergy Personal history nonsmoker nonalcoholic Family history significant for CAD Review of system: Complaining of minimal headache, also complaining of dryness of the mouth, cough noted minimally, left-sided pleuritic chest pain, poor intake, loss of appetite noted. Urine output is and bowel movements are okay On examination: Chest bilateral good air entry, but left-sided lower lung rales noted. Regular heart sound Abdomen soft Nontender. No pedal edema [employer] alert awake oriented. Patient is feeling sick at this time. Labs reviewed Elevated WBC noted, neutrophil positive. X-ray of the chest showing evidence of left lower lung infiltrate. CT of the chest with contrast done to rule out PE, there is no evidence of PE noted. Patient has left lower lung consolidation and pleural effusion Small amount of pleural effusion noted Assessment and recommendation: 82-year-old female with a history of hypertension, hypercholesterolemia, CAD, status post a CABG, hypothyroidism now admitted with a possible acute community- acquired pneumonia. Associated with a minimal pleural effusion, parapneumonic effusion. Patient also has a possible dehydration. Weakness. Will start the patient on IV antibiotic including Rocephin and Zithromax. The also start a dose of vancomycin. Pain management. IV fluid. DVT and GI prophylaxis. Discussed with the family. Will closely monitor and will follow the patient. Course in the hospital: Patient initially admitted to the hospital with pneumonia, most likely community -acquired pneumonia, pleurisy. Patient having severe distress with the pain. Started on pain medicine. IV fluid. Antibiotic with Zosyn. Initially patient also received vancomycin. Cultures were taken. Initial culture, negative. CT scan of the chest are done showing evidence of pneumonia, with minimal pleural effusion. Over the course of a few days, patient initially showed improvement, but started having increasing cough. 4 days later patient developed sudden onset of increasing dyspnea, chest tightness, wheezing. She was also having symptoms of heart failure. Lasix was given. Cardiology evaluation was called. Echocardiogram was done, suggestive of mostly a diastolic heart dysfunction. Patient improved with the Lasix and also the cough was improved with the Solu- Medrol. Antibiotic was changed to Primaxin. Patient started showing significant improvement in the symptoms. Able to ambulate well Saturation was also normal. Patient was also not having any distress. Appetite is back. No diarrhea noted. Repeat CAT scan showing improvement in the pneumonia. There is no evidence of pulmonary edema noted. Pneumonia also showing some improvement. But the radiological improvement not much noted yet Patient clinically stable for discharge. On the day of discharge vital signs were stable. No fever noted. Less cough noted. Tolerating at this time. Patient at least took 7 days of intravenous antibiotic At this time no pedal antibiotic needed. We will continue the bronchodilators. Patient will continue her home medications Discussed with the family. Physical therapy advised. We will follow the patient as an outpatient Final diagnosis: Severe acute community-acquired pneumonia, with a parapneumonic effusion. Diastolic heart failure with acute exacerbation Dyspnea Hypertension Hypersensitivity airway disease, with acute bronchitis. Patient will follow-up as an outpatient. Medications reviewed Discharge Plan - Follow Up Plan Condition: STABLE Disposition: HOME/ ROUTINE Instructions: Community-Acquired Pneumonia, Adult (DC) Additional Instructions: FOLLOW UP WITH DR DE LA TORRE IN 1-2 WEEKS AT HIS OFFICE --CALL FOR APPOINTMENT CONTINUE YOUR MEDICATION ORDER BY DR DE LA TORRE ACTIVITY TOLERATED CALL DR DE LA TORRE OR GO TO THE EMERGENCY ROOM IF SYMPTOMS RETURN OR WORSENING Referrals: Wilmer Nation MD [Staff Provider] - Win De La Torre MD [Staff Provider] -
== END 2017-12-15 12:08 | disposition home or self-care (01) | DRG 193 ==
LOC: C.ER 12:29 → C.9E 14:43 → C.3T 15:33 → OBSVTOIN 12-08 18:17 → C.5S 12-10 21:56
PROVIDERS: ADMIT Internal Medicine; ATTEND Internal Medicine
DX: J18.9 Pneumonia, unspecified organism (principal); I50.33 Acute on chronic diastolic (congestive) heart failure; J44.0 Chronic obstructive pulmonary disease with (acute) lower respiratory infection; J98.11 Atelectasis; I11.0 Hypertensive heart disease with heart failure; I27.20 Pulmonary hypertension, unspecified; J20.9 Acute bronchitis, unspecified; Z95.1 Presence of aortocoronary bypass graft; I25.10 Atherosclerotic heart disease of native coronary artery without angina pectoris; M81.0 Age-related osteoporosis without current pathological fracture; I08.1 Rheumatic disorders of both mitral and tricuspid valves; E03.9 Hypothyroidism, unspecified; E78.00 Pure hypercholesterolemia, unspecified; E11.9 Type 2 diabetes mellitus without complications